=== PATIENT | female | born 1975 | race Caucasian/White ===

== ENCOUNTER 2019-10-19 16:30 | Emergency (ER) | payer OTHER, SELFPAY ==
[2019-10-19 16:44] VITALS: BP 133/60; PULSE 92; RESP 20; TEMP 37.4; O2SAT 98
--- NOTE | 2019-10-19 17:03 | ED.URI ---
HPI - URI/Sore Throat General Chief Complaint: Upper Respiratory Infection Stated Complaint: ear ache and head ache Time Seen by Provider: 10/19/19 17:04 Source: patient and family History of Present Illness HPI Narrative: Patient complains with right-sided facial tenderness and bilateral ear pain and discomfort. Patient states she is taken Tylenol Cold and sinus and using saline nasal spray with minimal relief in her symptoms. Patient states her symptoms have been going on for over 2 weeks. MD elicited complaint: nasal congestion Related Data Home Medications Medication Instructions Recorded Confirmed duloxetine [Cymbalta] 120 mg PO DAILY 10/19/19 10/19/19 losartan-hydrochlorothiazide 1 tablet PO DAILY 10/19/19 10/19/19 trazodone 200 mg PO HS 10/19/19 10/19/19 Allergies Allergy/AdvReac Type Severity Reaction Status Date / Time No Known Allergies Allergy Unverified 06/07/18 12:44 Review of Systems Review of Systems: Narrative: CONSTITUTIONAL: Denies fever, chills, or sweats. EYES: Denies visual changes, redness, or discharge. ENT: Denies rhinorrhea, congestion, sore throat, or otalgia. CARDIOVASCULAR: Denies chest pain, palpitations, or edema. RESPIRATORY: Denies cough or dyspnea. GASTROINTESTINAL: Denies abdominal pain, nausea, vomiting, or diarrhea. GENITOURINARY: Denies dysuria or hematuria. SKIN: Denies rash or itching. MUSCULOSKELETAL: Denies back pain, joint pain, or myalgia. NEUROLOGIC: Denies headache, numbness, or weakness. PSYCHIATRIC: Denies anxiety or depression. All systems reviewed & are unremarkable except as noted in HPI and below PMFSH Comments At time of signature, agree with nursing past medical, surgical, social and family history. There is no relevant family history pertinent to the presenting complaint Exam Narrative: Exam Narrative: The patient is a well-developed, well-nourished in no acute distress. SKIN: Skin is warm and dry without erythema, swelling or exudate. There is good turgor. No tenting. HEAD: Atraumatic. Normocephalic. No temporal or scalp tenderness. EYES: Moist and bright. Sclera and conjunctivae normal. No discharge. PERRLA. Extraocular motions intact. Gross visual acuity intact. EARS: Pinna is normal shape and contour. Clear external auditory canals. TM pearly vergara with good cone of light, no erythema or suppuration. Bilateral cerumen noted no gross hearing deficit. NOSE: pink, moist mucosa with good air movement. Clear rhinorrhea without nasal flaring. Septum midline. Moderate maxillary sinus pressure Mouth: moist mucous membranes. THROAT; mild erythema noted to posterior oropharynx with moderate postnasal drainage. Without exudate or ulceration.. Uvula midline. Normal movement of soft palate. NECK: Supple and nontender with full range of motion without discomfort. No meningeal signs. LUNGS: Equal and bilateral breath sounds without wheezes, rales or rhonchi. CHEST: The chest wall is without retractions or use of accessory muscles. HEART: Has a regular rate and rhythm without murmur, gallops, click or rub. ABDOMEN: Soft, nontender with positive active bowel sounds. No rebound tenderness. EXTREMITIES: Without cyanosis, clubbing or edema. Equal 2+ distal pulses and 2 second capillary refill noted. NEUROLOGIC: alert, active, . The patient moves all extremities with normal muscle strength. Normal muscle tone is noted. Normal coordination is noted. NO focal neurological findings noted. Course Vital Signs Vital signs: Vital Signs Temperature 37.4 C 10/19/19 16:44 Pulse Rate 92 10/19/19 16:44 Respiratory Rate 20 10/19/19 16:44 Blood Pressure 133/60 10/19/19 16:44 Pulse Oximetry 98 10/19/19 16:44 Temperature 37.4 C 10/19/19 16:44 Pulse Rate 92 10/19/19 16:44 Respiratory Rate 20 10/19/19 16:44 Blood Pressure 133/60 10/19/19 16:44 Pulse Oximetry 98 10/19/19 16:44 Critical Care Time Critical Care Time Critical Care Time: No Discharge Ken
== END 2019-10-19 17:10 | disposition home or self-care (01) ==
PROVIDERS: Emergency Provider Nurse Practitioner Family
DX: J01.10 Acute frontal sinusitis, unspecified (principal); J06.9 Acute upper respiratory infection, unspecified; I10 Essential (primary) hypertension; F32.9 Major depressive disorder, single episode, unspecified
CPT/HCPCS: 99213; G0463

== ENCOUNTER 2022-08-04 12:27 | Emergency (ER) | payer OTHER, SELFPAY ==
[2022-08-04 13:51] VITALS: BP 126/87; PULSE 86; RESP 18; TEMP 36.7; O2SAT 98
--- NOTE | 2022-08-04 16:00 | ED.EAR ---
HPI - Ear Problem General Chief complaint: Ear Stated complaint: Ear Pain/Sore Throat Time Seen by Provider: 08/04/22 16:00 Source: patient, RN notes reviewed and old records reviewed Mode of arrival: ambulatory Limitations: no limitations History of Present Illness HPI Narrative: 47-year-old female presents to [facility] care with complaints of headache, sore throat, bilateral ear pain, cough, sinus congestion and drainage for the past week. Patient reports that she has been taking Sudafed and also Flonase, Tylenol and Ibuprofen for her symptoms. Patient rates her ear pain as 7/10, reports that they are burning, sharp and throbbing. 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 MD Complaint: ear pain and other (headache, sore throat, cough, sinus congestion and drainage) Location: bilateral Severity: severe Discharge from ear: Reports no Treatment prior to arrival: oral analgesic and other (Sudafed and Flonase) Related Data Home Medications Medication Instructions Recorded Confirmed trazodone 100 mg tablet 200 mg PO HS 10/19/19 08/04/22 Ibuprofen BYMOUTH 11/10/21 11/10/21 buspirone 10 mg tablet 10 mg PO QHS 11/10/21 08/04/22 duloxetine 60 mg capsule,delayed 60 mg PO QHS 11/10/21 08/04/22 release (Cymbalta) duloxetine 30 mg capsule,delayed 30 mg PO HS 08/04/22 08/04/22 release Allergies Allergy/AdvReac Type Severity Reaction Status Date / Time No Known Allergies Allergy Verified 08/04/22 13:46 Review of Systems Review of Systems: CONSTITUTIONAL: No known fever, chills, or sweats. EYES: Denies visual changes, redness, or discharge. ENT: Reports rhinorrhea, congestion,positive for sore throat, bilateral otalgia. CARDIOVASCULAR: Denies chest pain, palpitations, or edema. RESPIRATORY: Denies cough or dyspnea. GASTROINTESTINAL: Denies abdominal pain, nausea, vomiting, or diarrhea. GENITOURINARY: Denies dysuria or hematuria. SKIN: Denies rash or itching. MUSCULOSKELETAL: Denies back pain, joint pain, or myalgia. NEUROLOGIC: Reports headache,no numbness, or weakness. PSYCHIATRIC: Denies anxiety or depression. All systems reviewed & are unremarkable except as noted in HPI and below PMFSH Past Medical History Medical History Anemia Anxiety Arthritis Bloating Chicken pox Chronic GERD Depression History of miscarriage Hypertension Missed x1 Vaginal delivery x2 Surgical History Surgical History History of cholecystectomy 2018 History of foot surgery Family History Family History Father Hypertension Anxiety Depression Sibling Hypertension Son Anxiety Depression Social History Social History Social History: Patient drinks caffeine daily. 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 Gender identity (if verbalized by the patient): Female Sexual Orientation (if Verbalized by the Patient): Straight or Heterosexual Comments At time of signature, agree with nursing past medical, surgical, social and family history. There is no relevant family history pertinent to the presenting complaint Exam Narrative: GENERAL: Well-appearing, well-nourished, obese, and in no acute distress. HEAD: Normocephalic, atraumatic. EYES: PERRLA and EOMI. ENT: Nares clear,clear rhinorrhea no epistaxis. Mucous membranes moist.TM's dull with fluid noted no redness of TM or ear canals, throat pink with no lesions or exudates,post nasal drainage NECK: Supple. no lymphadenopathy CHEST: Clear to auscultation. No respiratory distress. SAO2 98%
== END 2022-08-04 16:30 | disposition home or self-care (01) ==
PROVIDERS: Emergency Provider Registered Nurse; PCP Emergency Medicine
DX: J06.9 Acute upper respiratory infection, unspecified (principal); R05.9 Cough, unspecified; H92.03 Otalgia, bilateral; M19.90 Unspecified osteoarthritis, unspecified site; K21.9 Gastro-esophageal reflux disease without esophagitis; I10 Essential (primary) hypertension; F41.9 Anxiety disorder, unspecified; F32.A Depression, unspecified
CPT/HCPCS: 87081; 87880; 99213; G0463

== ENCOUNTER 2022-09-22 15:25 | Outpatient (CLI) | payer OTHER, SELFPAY ==
--- NOTE | ~2022-09-22 | CT_ITS ---
EXAMINATION: CT abdomen pelvis w con INDICATION: Right lower quadrant pain, anterior abdominal mass TECHNIQUE: Computed tomographic images of the abdomen and pelvis were obtained after the administrati on of 100 cc of Omnipaque 350 intravenous contrast. The dose-length product (DLP) was 1249.79 mGy-cm. Automated exposure control and iterative reconstruction technique were employed. COMPARISON: None available FINDINGS: Minimal dependent atelectasis is present in the lung bases. The heart size is normal. The g allbladder is surgically absent. The liver, spleen, pancreas, and adrenal glands are normal. There is any millimeters cyst of the right kidney. The left kidney is unremarkable. No pathologically enlarge d abdominal or pelvic lymph nodes are identified. There is no free intraperitoneal gas or evidence of bowel obstruction. The appendix is normal. There is mild anterior wedging of multiple lower thoracic vertebral bodies. There is mild lower lumbar spondylosis. A tiny fat-containing umbilical hernia is noted. IMPRESSION: 1. No CT correlate for the patient's symptoms. Reviewed, dictated and finalized at location L. ER
[2022-09-22 15:56] LABS: Estimated Glomerular Filt Rate > 60
== END 2022-09-22 15:26 ==
LOC: MICIMG 15:27
PROVIDERS: PCP Obstetrics & Gynecology; Visit Provider Obstetrics & Gynecology
DX: R19.09 Other intra-abdominal and pelvic swelling, mass and lump (principal)
CPT/HCPCS: 74177; Q9967

== ENCOUNTER 2023-02-18 10:56 | Outpatient (CLI) | payer OTHER, SELFPAY ==
--- NOTE | 2023-02-18 11:06 | ECG_ITS ---
Measurements Intervals [place] Rate: 76 P: 17 UT: 125 QRS: 55 QRSD: 97 T: 20 QT: 364 QTc: 410 Interpretive Statements SINUS RHYTHM WITHIN NORMAL LIMITS NO PREVIOUS ECG AVAILABLE FOR COMPARISON Electronically Signed On 02-18-2023 12:54:43 CDT by Tico Barr M.D.
[2023-02-18 12:36] LABS: Anion Gap 6 mmol/L (8-16); Blood Urea Nitrogen 13 mg/dL (7-17); Calcium 8.5 mg/dL (8.4-10.2); Carbon Dioxide 29 mmol/L (22-30); Chloride 104 mmol/L (98-107); Estimated Glomerular Filt Rate > 60; Glucose 155 mg/dL (65-110); Potassium 3.9 mmol/L (3.4-5.0); Sodium 139 mmol/L (137-145)
== END 2023-02-18 10:57 | disposition home or self-care (01) ==
LOC: ANHSURGERY 11:02
PROVIDERS: PCP Emergency Medicine; Visit Provider Surgery
DX: K42.9 Umbilical hernia without obstruction or gangrene (principal); I10 Essential (primary) hypertension; Z01.818 Encounter for other preprocedural examination
CPT/HCPCS: 36415; 80048; 86850; 86900; 86901; 93005

== ENCOUNTER 2023-02-23 07:00 | Day surgery (SDC) | payer OTHER, SELFPAY ==
[2023-02-17 12:50] VITALS: BMI 45.8
--- NOTE | 2023-02-17 13:11 | PC.NURSE ---
Report to the Outpatient Waiting Room, entrance under the green pavilion located off [facility], at time _0600__ on date 02/23/23_. Planned Procedure Time: _0730_. Time changes happen often and if your time is changed the preop area will call you the afternoon before. - You and your visitor will be asked to self-screen and do not enter if you have any COVID symptoms. - A mask is optional within the hospital at this time. Patients may have clear liquids (water, carbonated beverages, clear teas, apple juice) until 3 hours prior to surgery with a maximum of 20 ounces. - No food from midnight until time of surgery. Take the following medications with a SIP of water the morning of surgery: __NONE DO NOT STOP ANY OF YOUR OTHER PRESCRIPTION MEDICATIONS PRIOR TO SURGERY ?EXCEPT THE FOLLOWING Medications to discontinue per physician IBUPROFEN 02/20/23 SWITCH TO TYLENOL PRN Date to take last dose Please no make-up, nail serbian, hairspray, perfume, deodorant, or body powder the day of surgery. No jewelry (including any body piercings) or valuables the day of surgery, leave them at home. Please take a shower or bath the night before, or the morning of, surgery with an antibacterial soap. Wear comfortable, loose fitting clothing. - Jewelry must be removed prior to entering the operating room. Rings and piercings that are not removed may be cut off. - The hospital will not accept responsibility for valuables. - Please leave all valuables, including medications, at home the day of surgery. If you are going home after surgery, a licensed test driver must drive you home. - NO public transportation without another adult if you receive anesthesia. - We recommend that an adult stay with you for 24 hours following discharge. - We also recommend that you do not drive, make important decision, drink alcoholic beverages, or take any drugs that were not prescribed by your health care provider for at least 24 hours after your discharge time. Follow any additional instructions given to you from your surgeon. If you or anyone in your household have experienced Covid symptoms in the past week, please notify your surgeon or the nurse liaison at the phone number below for possible testing. Telephone instructions given to _KELVIN__and asked if any additional questions and then verbalized understanding. Patient advised to call surgeon office or pre surgery nurse liaison [phone] if any additional questions.
--- NOTE | 2023-02-23 21:14 | OP_ITS ---
DATE OF PROCEDURE: 02/23/2023 PREOPERATIVE DIAGNOSIS: Umbilical hernia. POSTOPERATIVE DIAGNOSIS: 1 cm reducible umbilical hernia. PROCEDURE: Laparoscopic 1 cm umbilical hernia repair with mesh, Da Aleksander assisted. ANESTHESIA: General endotracheal and 0.5% bupivacaine with epinephrine local. ESTIMATED BLOOD LOSS: 5 mL. INDICATIONS: This is a 47-year-old woman, who presented with periumbilical pain that started about 6 months ago. She had a recent CT that showed evidence of a small umbilical hernia with no other intraabdominal abnormalities. The patient was found to have a small reducible umbilical hernia on exam. Discussions were made with the patient about treatment options and decision was made to proceed with robotic-assisted laparoscopic umbilical hernia repair with mesh. OPERATIVE FINDINGS: Laparoscopic umbilical hernia repair was performed. The patient was found to have a 1 cm reducible umbilical hernia containing preperitoneal fat. A robotic transabdominal preperitoneal approach was utilized for repair. A wide enough preperitoneal pocket was created and then the hernia defect was closed using 0 Stratafix running absorbable suture. A 10 cm x 15 cm Bard soft mesh was then placed within the preperitoneal pocket and secured to the abdominal wall using 3-0 Vicryl simple interrupted sutures. No specimens were obtained for pathology. DESCRIPTION OF PROCEDURE: Procedure as well as risks, benefits, and alternatives were discussed with the patient. Written consent was obtained and placed in chart prior to procedure. The patient was brought back to surgical suite. She was placed supine on operating table. Time-out was done to confirm patient and procedure. She was then intubated by the anesthesia department. Her abdomen was prepped and draped in sterile fashion using chlorhexidine prep. A bump was placed under her left hip and the bed was slightly flexed to expose the space between her costal margin and iliac crest. 0.5% bupivacaine with epinephrine was infiltrated locally around each area for port placement. An 8 mm incision was then made in the left upper quadrant and a 5 mm Optiview trocar was advanced through the abdominal layers under direct visualization. Once inside the abdominal cavity, carbon dioxide insufflation was used to create a pneumoperitoneum. The camera was inserted and the abdomen was inspected. No immediate abnormalities were identified. The patient was then placed in slight Trendelenburg position. An 8 mm incision was made in the left lower quadrant and an 8 mm trocar was advanced under direct visualization. Another 8 mm incision was made in the left lateral abdomen and an 8 mm trocar was inserted under direct visualization. The 5 mm port was then removed and this was replaced with another 8 mm robotic trocar. The robotic arms were then brought up to the patient's bedside and secured to the ports. The camera and instrument were then inserted. I then moved over to the robotic console and took control of the camera and instruments. A careful inspection was made around the abdominal cavity. I then identified the umbilical hernia, which appeared small and only containing preperitoneal fat. I then began a preperitoneal plane along the left lateral abdomen using scissors with electrocautery. The preperitoneal space was entered and this was dissected medially towards the hernia defect. I then also dissected far enough laterally to allow for mesh placement. The hernia sac and herniated preperitoneal fat was reduced. Once a wide enough preperitoneal pocket was created, I then closed the hernia defect using 0 Stratafix running absorbable suture. This was closed in a vertical fashion. I then chose a 15 cm x 10 cm Bard soft mesh and this was placed within the abdominal cavity and then placed within the preperitoneal pocket. The mesh was la
--- NOTE | 2023-02-24 12:40 | SUR.PREOP ---
Paper documentation exists on this patient due to [employer] downtime on 02/23/23
== END 2023-02-23 10:46 | disposition home or self-care (01) ==
PROVIDERS: PCP Emergency Medicine; Visit Provider Surgery
PROC: (CPT 49591; principal; 2023-02-23 07:30)
DX: K42.9 Umbilical hernia without obstruction or gangrene (principal); I10 Essential (primary) hypertension; G47.33 Obstructive sleep apnea (adult) (pediatric); F32.A Depression, unspecified
CPT/HCPCS: 49591; S2900; 36415; 80048; 86850; 86900; 86901; 93005; C1781; J0690; J1100; J2405; J2704; J2710

== ENCOUNTER 2023-06-21 10:41 | Emergency (ER) | payer OTHER, SELFPAY ==
[2023-06-21 10:54] VITALS: BP 135/78; PULSE 78; RESP 18; TEMP 36.8; O2SAT 98
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
[2023-06-21] MEDS: CYCLOBENZAPRINE HCL 5 MG TABLET 10 MG PO (12:34)
[2023-06-21] MEDS: IBUPROFEN 400 MG TABLET 800 MG PO (12:35)
[2023-06-21] MEDS: ACETAMINOPHEN 500 MG TABLET 1000 MG PO (12:35)
== END 2023-06-21 12:39 | disposition home or self-care (01) ==
PROVIDERS: Emergency Provider Emergency Medicine; PCP Emergency Medicine
DX: S16.1XXA Strain of muscle, fascia and tendon at neck level, initial encounter (principal); D64.9 Anemia, unspecified; F41.9 Anxiety disorder, unspecified; M19.90 Unspecified osteoarthritis, unspecified site; K21.9 Gastro-esophageal reflux disease without esophagitis; F32.A Depression, unspecified; I10 Essential (primary) hypertension; V43.53XA Car driver injured in collision with pick-up truck in traffic accident, initial encounter
CPT/HCPCS: 99283; A9270

== ENCOUNTER 2023-09-21 15:21 | Emergency (ER) | payer OTHER, SELFPAY ==
--- NOTE | 2023-09-21 15:25 | ED.EAR ---
HPI - Ear Problem General Chief complaint: Ear Stated complaint: ears Source: patient, RN notes reviewed and old records reviewed Mode of arrival: ambulatory Limitations: no limitations History of Present Illness HPI Narrative: 48 year female presents to [facility] with complaint of left ear pain for 3 days. Patient states had some congestion, this states is chronic. Patient states has ENT that she sees regularly and is on Flonase and another nasal spray. MD Complaint: ear pain Location: left ear Duration: constant Severity: moderate Relieving factors: nothing Exacerbating factors: nothing Related Data Home Medications Medication Instructions Recorded Confirmed trazodone 100 mg tablet 200 mg PO BID 10/19/19 09/21/23 duloxetine 60 mg capsule,delayed 60 mg PO BID 11/01/22 09/21/23 release (Cymbalta) brexpiprazole 2 mg tablet (Rexulti) 2 mg PO DAILY 09/19/23 09/21/23 azelastine 137 mcg-fluticasone 50 2 spray intranasal DAILY 09/21/23 09/21/23 mcg/spray nasal spray hydrochlorothiazide 12.5 mg capsule 12.5 mg PO DAILY 09/21/23 09/21/23 linaclotide 72 mcg capsule 72 mcg PO DAILY 09/21/23 09/21/23 (Linzess) norethindrone (contraceptive) 0.35 0.35 mg PO DAILY 09/21/23 09/21/23 mg tablet Allergies Allergy/AdvReac Type Severity Reaction Status Date / Time No Known Allergies Allergy Verified 09/21/23 15:24 Review of Systems Constitutional: Constitutional: Reports no additional constitutional complaints, Denies body ache(s), Denies chills, Denies fatigue, Denies fever(s) and Denies headache(s) Eyes: Eyes: Reports no additional eye complaints and Denies blurry vision ENT: Reports system reviewed and no additional complaints, except as documented, Denies vertigo, Denies dizziness, Denies ear discharge, Reports otalgia, Denies facial pain, Denies headache(s), Denies nasal congestion, Denies nasal discharge, Denies sinus pain, Denies sinus pressure and Denies sore throat Cardiovascular: Cardiovascular: Reports no additional cardiovascular complaints, Denies chest pain, Denies chest pain at rest, Denies rapid heart rate and Denies dyspnea Respiratory: Respiratory: Reports no additional respiratory complaints, Denies chest congestion, Denies cough, Denies pain on inspiration, Denies pain with cough and Denies dyspnea Gastrointestinal: Gastrointestinal: Denies abdominal pain, Denies diarrhea, Denies nausea and Denies vomiting Integumentary/Breasts: Skin/Breast: Denies rash Neurologic: Reports system reviewed and no additional complaints, except as documented, Denies vertigo, Denies dizziness and Denies headache(s) Endocrine: Endocrine: Denies fatigue PMFSH Past Medical History Medical History Anemia Anxiety Arthritis Bloating Chicken pox Chronic GERD Depression History of miscarriage Hypertension Missed x1 Vaginal delivery x2 Surgical History Surgical History H/O umbilical hernia repair 02/23/23 Laparoscopic 1 cm umbilical hernia repair with mesh, Da Aleksander assisted. History of cholecystectomy 2018 History of foot surgery Family History Family History Father Hypertension Anxiety Depression Sibling Hypertension Son Anxiety Depression Mother Atrial fibrillation Social History Social History Social History: Patient drinks caffeine daily. Smoking status: Never smoker Second hand tobacco smoke exposure: No Alcohol intake: never Substance use: never Substance use type: does not use Lack of Transportation: No Lack of Food: Never True Current Housing: I Have Housing Concerned About Future Housing: No Difficulty Paying Gas/Electric Bills: No Difficulty Paying for Meds: No Currently Unemployed: No Education: High School Diploma/GED
[2023-09-21 15:26] VITALS: BP 130/84; PULSE 78; RESP 16; TEMP 36.6; O2SAT 98
[2023-09-21 15:32] VITALS: BP 130/84; PULSE 78; RESP 16; TEMP 36.6; O2SAT 98
== END 2023-09-21 15:38 | disposition home or self-care (01) ==
PROVIDERS: Emergency Provider Registered Nurse; PCP Emergency Medicine
DX: H66.92 Otitis media, unspecified, left ear (principal); I10 Essential (primary) hypertension; Z79.899 Other long term (current) drug therapy
CPT/HCPCS: 99213; G0463

== ENCOUNTER 2024-08-01 16:26 | Emergency (ER) | payer OTHER, SELFPAY ==
--- NOTE | ~2024-08-01 | XR_ITS ---
EXAMINATION: XR hand RT min 3V DATE: 08/01/2024 20:18 INDICATION: Right hand foreign body. TECHNIQUE: 3 views of right hand were obtained. COMPARISON: None. FINDINGS: Alignment is normal. No acute fracture. There is an old healed fracture of diaphysis of fif th metacarpal. 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 IMPRESSION: 1. No radiopaque foreign body. Reviewed, dictated and finalized at location A. JACK NOZZLEMAN
[2024-08-01 16:28] VITALS: BP 170/79; PULSE 85; RESP 16; TEMP 36.3; O2SAT 98
--- NOTE | 2024-08-01 20:05 | ED_ITS ---
HPI - Animal Bite General Chief Complaint: Animal Bite Stated Complaint: dog bite Time Seen by Provider: 08/01/24 19:42 History of Present Illness HPI narrative: patient is a 49-year-old female who presents to the emergency department this evening complaining of a dog bite to the right hand. Patient has multiple small puncture wound to her right hand. She states that 2 of her dogs were in a fight and she was trying to break them up and she got bit. Patient admits that her tetanus is not up-to-date. Denies any additional symptoms or concerns at this time. Related Data Home Medications Medication Instructions Recorded Confirmed trazodone 100 mg tablet 200 mg PO BID 10/19/19 07/03/24 duloxetine 60 mg capsule,delayed 60 mg PO BID 11/01/22 07/03/24 release (Cymbalta) fluticasone propionate 50 2 spray intranasal DAILY 09/21/23 07/03/24 mcg/actuation nasal spray,suspension norethindrone (contraceptive) 0.35 0.35 mg PO DAILY 09/21/23 07/03/24 mg tablet Allergies Allergy/AdvReac Type Severity Reaction Status Date / Time No Known Allergies Allergy Verified 07/03/24 15:52 Review of Systems Review of Systems: All systems are reviewed and are negative unless stated otherwise in the HPI. PMFSH Past Medical History Medical History Anemia Anxiety Arthritis Bloating Chicken pox Chronic GERD Depression Dizziness Earache Encounter for contraceptive surveillance Encounter for examination following surgery Encounter for other specified surgical aftercare History of miscarriage Hypertension Indigestion Missed x1 Nausea and vomiting Palpitation Sinusitis chronic, frontal Stomach problems Umbilical hernia without mention of obstruction or gangrene Vaginal delivery x2 Surgical History Surgical History H/O umbilical hernia repair 02/23/23 Laparoscopic 1 cm umbilical hernia repair with mesh, Da Aleksander assisted. History of cholecystectomy 2018 History of foot surgery Family History Family History Father Hypertension Anxiety Depression Sibling Hypertension Son Anxiety Depression Mother Atrial fibrillation Social History Social History Social History: Patient drinks caffeine daily. 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 Gender identity (if verbalized by the patient): Female Sexual Orientation (if Verbalized by the Patient): Straight or Heterosexual Spiritual care concerns: No Exam Narrative: General: Alert, awake, afebrile, in no acute distress. HEENT: PERRL, no rhinorrhea, no post nasal drip, oropharynx clear. Neck: Trachea midline, no JVD, no lymphadenopathy. Cardiovascular: Regular rate and rhythm, no murmurs, rubs or gallops, no peripheral edema. Respiratory: Clear to auscultation bilaterally, no tachypnea, no wheezing, no rhonchi, no rubs, no respiratory distress. Abdomen: Soft, nontender, nondistended, no rebound, no guarding, no peritoneal signs. Musculoskeletal: No joint swelling or deformity, normal muscle tone. Skin: Multiple small punctate wounds to the right hand largest measuring 4 mm, no active bleeding, patient is neurovascularly intact. Psychiatric: Alert and oriented, normal behavior and judgment for situation. Neurological: Alert and oriented to person, place, and time. Follows all commands. No focal deficits, speech is clear and fluent. Course Vital Signs Vital signs: Vital Signs Temperature 97.3 F L 08/01/24 16:28 Pulse Rate 85 08/01/24 16:28 Respiratory Rate 16 08/01/24 16:28 Blood Pressure 170/79 H 08/01/24 16:28 Pulse Oximetry 98 08/01/24 16:28 Oxygen Delivery Room Air 08/01/24 16:28 Temperature 97.3 F L 08/01/24 16:28 Pulse Rate 85 08/01/24 16:28 Respiratory Rate 16 08/01/24 16:28 Blood Pressure 170/79 H 08/01/24 16:28 Pulse Oximetry 98 08/01/24 16:28 Oxygen Delivery Room Air 08/01/24 16:28 MDM - Animal Bite MDM Narrative Medical decision making narrative: The patient was evaluated by myself in the emergency department. History is obtained from patient who is an independent historian and physical exam was performed. External medical records were reviewed at this time. Patient was administered her 1st dose of Augmentin in the emergency department and an oral [place] 5-325 mg. Tetanus updated. Imaging studies obtained included right hand x-ray which was independently interpreted by me revealing no acute process, no foreign body identified, which is pending final radiology interpretation. Differential diagnosis considerations include lacerations, abrasions, foreign body. Comorbidities impacting this visit include none. I have evaluated and discussed social determinants of health with the patient that could potentially impact subsequent diagnosis and treatment plans. On repeat assessment of the patient, reevaluation revealed that the patient is doing well and is in no acute distress. Patient symptoms have improved since she arrived to our emergency department. Repeat vital signs were all reviewed and noted to be stable. Differential diagnosis and treatment plan were discussed with the patient at bedside. Patient agrees with discussion and after shared medical decision making agrees with discharge. All questions were answered to the patient's satisfaction. Patient will follow up with her PCP in 3-5 days. Patient was provided with strict return precautions and instructed to return to the emergency department if any new or worsening symptoms develop. The patient was discharged in stable condition. Discharge Plan Discharge Clinical Impression: Dog bite Patient Disposition: Home, Self-Care Condition: Improved Instructions: Antibiotic Form, Animal Bite (ED) Additional Instructions: Please take the prescribed antibiotic as instructed. Return to the emergency department if any new or worsening symptoms develop. Follow-up with your family doctor within the next 3-5 days. Prescriptions: New amoxicillin-pot clavulanate 875-125 mg tablet 1 tablet PO Q12H 7 Days Qty: 14 0RF No Action norethindrone (contraceptive) 0.35 mg tablet 0.35 mg PO DAILY fluticasone propionate 50 mcg/actuation spray,suspension 2 spray INTRANASAL DAILY trazodone 100 mg Tablet 200 mg PO BID duloxetine [Cymbalta] 60 mg capsule,delayed release(DR/EC) 60 mg PO BID Linzess 72 mcg capsule 72 mcg PO DAILY Qty: 90 2RF omeprazole 40 mg capsule,delayed release(DR/EC) 40 mg PO DAILY Qty: 90 2RF azelastine-fluticasone 137-50 mcg/spray spray,non-aerosol 2 spray INTRANASAL DAILY Qty: 23 2RF losartan 50 mg tablet See Rx Instructions .ROUTE .COMPLEX Qty: 90 2RF Dose Instruction: TAKE ONE TABLET BY MOUTH EVERY DAY Rx Instructions: TAKE ONE TABLET BY MOUTH EVERY DAY hydrochlorothiazide 12.5 mg capsule See Rx Instructions .ROUTE .COMPLEX Qty: 90 2RF Dose Instruction: TAKE 1 CAPSULE BY MOUTH EVERY DAY Rx Instructions: TAKE 1 CAPSULE BY MOUTH EVERY DAY Follow-up/Referrals: Tico Patel MD [Primary Care Provider] - 1 Week Time of Disposition: 20:02
[2024-08-01] MEDS: TETANUS,DIPHTHERIA,AC PERTUSSIS ADULT (0.5 ML) BOOSTRIX IM (20:12)
[2024-08-01] MEDS: AMOXICILLIN/CLAVULANATE K 875-125 MG TAB 1 TABLET PO (20:12)
[2024-08-01] MEDS: HYDROcodone/acetaminophen (*CRX) 5-325 MG TABLET 1 TAB PO (20:30)
== END 2024-08-01 21:00 | disposition home or self-care (01) ==
LOC: ANHED 20:51
PROVIDERS: Emergency Provider Emergency Medicine; PCP Emergency Medicine
DX: S61.451A Open bite of right hand, initial encounter (principal); D64.9 Anemia, unspecified; F41.9 Anxiety disorder, unspecified; M19.90 Unspecified osteoarthritis, unspecified site; K21.9 Gastro-esophageal reflux disease without esophagitis; F32.A Depression, unspecified; I10 Essential (primary) hypertension; W54.0XXA Bitten by dog, initial encounter; Z23 Encounter for immunization
CPT/HCPCS: 73130; 90471; 90715; 99283; A9270

== ENCOUNTER 2025-09-07 17:58 | Emergency (ER) | payer OTHER, SELFPAY ==
--- NOTE | ~2025-09-07 | XR_ITS ---
EXAMINATION: Right rib series with PA and lateral chest: DATE: 09/07/2025. INDICATION: Pain, right lower rib cage. No mention of trauma. TECHNIQUE: 2 views of the chest, right rib series. COMPARISON: None. FINDINGS: Heart size is normal. Lungs are clear of acute processes. No acute findings of right ribs. Chest wall shows no acute findings. IMPRESSION: 1. No acute cardiopulmonary findings. 2. No acute findings of right-sided ribs. Reviewed, dictated and finalized at location [facility]
--- OUTSIDE RECORDS SUMMARY | 2025-09-07 18:00 | XMS_ITS | Clinical Summary ---
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
--- OUTSIDE RECORDS SUMMARY | 2025-09-07 18:00 | XMS_ITS | Clinical Summary ---
Author Organization [facility] Agent Partner & [facility] lin Address [address] [place] [address] Care Team Providers Care Apprentice Pattern Maker Name Role Phone Unavailable Primary Care Provider Unavailabl e Social History Tobacco Use Types Packs/Day Years Used Date Smoking Tobacco: Never Assessed Comments Unknown Sex and Gender Information Value Date Recorded Sex Assigned at Not on file Legal Sex Female 3:23 PM EST Gender Identity Not on file Sexual Orientation Not on file Plan of Treatment Not on file Medical Devices Not on file
--- OUTSIDE RECORDS SUMMARY | 2025-09-07 18:00 | XMS_ITS | Encounter Summary ---
Author Organization [facility] Address 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 Gender Identity Not on file Sexual Orientation Not on file documented as of this encounter Plan of Treatment Not on file documented as of this encounter Procedures Procedure Name Priority Date/Time Associated Diagnosis Comments POC GLUCOSE Routine 10/16/2007 10:53 PM SOFTWARE CONTROLS ENGINEER CBC WITH DIFFERENTIAL Routine 10/16/2007 10:48 PM SOFTWARE CONTROLS ENGINEER CBC WITH DIFFERENTIAL Routine 10/16/2007 10:48 PM SOFTWARE CONTROLS ENGINEER COMPREHENSIVE METABOLIC PANEL Routine 10/16/2007 10:48 PM SOFTWARE CONTROLS ENGINEER documented in this encounter Results * (ABNORMAL) POC GLUCOSE (10/16/2007 10:53 PM SOFTWARE CONTROLS ENGINEER) GLUCOSE POC 126(H) 65 - 99 mg/dL INTERFACE SYSTEM 10/16/2007 10:5 3 PM SOFTWARE CONTROLS ENGINEER us Authorized P Er POINT OF CARE TESTING Final Resu lt INTERFACE SYSTEM Refer to clinic/hospital department * CBC WITH DIFFERENTIAL (10/16/2007 10:48 PM SOFTWARE CONTROLS ENGINEER) NEUTROPHILS 46 45 - 70 % INTERFAC E SYSTEM LYMPHOCYTES 41 16 - 45 % INTERFAC E SYSTEM MONOCYTES 13 3 - 13 % INTERFACE SYSTEM EOSINOPHILS 0 0 - 7 % INTERFAC E SYSTEM BASOPHILS 0 0 - 2 % INTERFACE SYSTEM NEUTROPHIL ABSOLUTE 3.77 1.90 - 7.00 K/uL INTERFACE SYSTEM LYMPHOCYTE ABSOLUTE 3.32 0.70 - 4.50 K/uL INTERFACE SYSTEM MONOCYTE ABSOLUTE 1.02 0.10 - 1.30 K/uL INTERFACE SYSTEM EOSINOPHIL ABSOLUTE 0.01 0.00 - 0.70 K/uL INTERFACE SYSTEM BASOPHILS ABSOLUTE 0.02 0.00 - 0.20 K/uL INTERFACE SYSTEM 10/16/2007 10:4 8 PM SOFTWARE CONTROLS ENGINEER Alexis Hutchison Jr., MD HEMATOLOGY ORDERABLES [place] Result Performing Organization Address [facility] Phone Number INTERFACE SYSTEM Refer to clinic/hospital department * (ABNORMAL) CBC WITH DIFFERENTIAL (10/16/2007 10:48 PM SOFTWARE CONTROLS ENGINEER) WBC 8.1 4.0 - 9.8 K/uL INTERFACE SYSTEM RBC 4.66 3.90 - 4.90 M/uL INTERFACE SYSTEM HEMOGLOBIN 12.0 11.8 - 14.8 g/dL INTERFACE SYSTEM HEMATOCRIT 37.0 35.5 - 44.0 % INTERFACE SYSTEM MCV 79.4(L) 82.0 - 99.0 fL INTERFACE SYSTEM MCH 25.8(L) 27.2 - 32.6 pg INTERFACE SYSTEM MCHC 32.4 31.5 - 35.5 % INTERFACE SYSTEM RDW 14.8(H) 11.5 - 14.5 % INTERFACE SYSTEM RDW-STDEV 42.5 37.1 - 48.7 fL INTERFACE SYSTEM PLATELETS 332 140 - 350 K/uL INTERFACE SYSTEM MPV 10.7 9.3 - 12.4 fL INTERFACE SYSTEM 10/16/2007 10:4 8 PM SOFTWARE CONTROLS ENGINEER Alexis Hutchison Jr., MD HEMATOLOGY ORDERABLES [place] Result Performing Organization Address [facility]/ZIP Co de Phone Number INTERFACE SYSTEM Refer to clinic/hospital department * (ABNORMAL) COMPREHENSIVE METABOLIC PANEL (10/16/2007 10:48 PM SOFTWARE CONTROLS ENGINEER) GLUCOSE 128(H) 65 - 99 mg/dL INTERFACE SYSTEM CREATININE 0.59 0.51 - 0.95 mg/dL INTERFACE SYSTEM CALCIUM 8.6 8.4 - 10.2 mg/dL INTERFACE SYSTEM ALKALINE PHOSPHATASE 67 35 - 104 U/L INTERFACE SYSTEM AST 17 12 - 32 U/L INTERFACE SYSTEM ALT 14 0 - 31 U/L INTERFACE SYSTEM TOTAL PROTEIN 7.9 6.3 - 8.6 g/dL INTERFACE SYSTEM ALBUMIN 4.3 3.4 - 4.8 g/dL INTERFACE SYSTEM BILIRUBIN TOTAL 0.2 0.2 - 1.0 mg/dL INTERFACE SYSTEM BUN 11 6 - 20 mg/dL INTERFACE SYSTEM SODIUM 139 135 - 145 mmol/L INTERFACE SYSTEM POTASSIUM 3.3(L) 3.5 - 4.9 mmol/L INTERFACE SYSTEM CHLORIDE 105 96 - 108 mmol/L INTERFACE SYSTEM CO2 22 22 - 30 mmol/L INTERFACE SYSTEM GFR, >60 >=60 mL/min/1. 7 sq meter INTERFACE SYSTEM GFR >60 >=60 mL/min/1. 7 sq meter INTERFACE SYSTEM Comment: Estimated GFR rate interpretative information for both Americans and non- Americans is available on the [facility] Intranet at: [email or web address] Select: Lab Policies and Procedures Select: Reference Ranges - GFR 10/16/2007 10:4 8 PM SOFTWARE CONTROLS ENGINEER Alexis Hutchison Jr., MD CHEMISTRY ORDERABLES Final Result INTERFACE SYSTEM Refer to clinic/hospital department documented in this encounter Visit Diagnoses Not on filedocumented in this encounter
--- OUTSIDE RECORDS SUMMARY | 2025-09-07 18:01 | XMS_ITS | Clinical Summary ---
Author Organization [facility] Address [address] [place] [address] Care Team Providers Care Membership Sales Advisor Name Role Phone Sahara Cunningham Marian PEREZ-SUPERINTENDENT CONCRETE MIXING PLANT Primary Care Provider Source Comments [facility],non-owned Affiliates and Associated Physician Practices is amultiple site organization consisting of ambulatory clinics and hospital sitesin [place], [place], [place] and [place]. This disclosure is being madepursuant to the Care Everywhere program and may not contain all information available regarding this patient. Last updated 18.[facility] Allergies No known active allergies Medications * Be aware that medications may not be up to date on this document. Alwaysverify current medications with the patient. omeprazole (PRILOSEC) 10 MG capsule Active traZODone (DESYREL) 100 MG tablet 6 Active losartan - hydroCHLOROthiazide (HYZAAR) 50-12.5 MG tablet 6 Active DULoxetine (CYMBALTA) 60 MG capsule 8 Active ibuprofen (MOTRIN) 800 MG tablet Take 800 mg by mouth Active Immunizations Immunization Administration Dates Next Due INFLUENZA VACCINE, TRIV. 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 Gender Identity Not on file Sexual Orientation Not on file Last Filed Vital Signs Vital Sign Reading Time Taken Comments Blood Pressure 144/79 01/19/2019 9:45 AM CDT Pulse 75 01/19/2019 9:45 AM CDT Temperature 36.5 C (97.7 F) 01/19/2019 9:45 AM CDT Respiratory Rate 18 01/19/2019 9:45 AM CDT Oxygen Saturation 98% 01/19/2019 9:45 AM CDT Inhaled Oxygen Concentration - - Weight 145.2 kg (320 lb) 01/19/2019 9:45 AM CDT Height 177.8 cm (5' 10) 01/19/2019 9:45 AM CDT Body Mass Index 45.92 01/19/2019 9:45 AM CDT Plan of Treatment Health Maintenance Due Date Last Done Comments COLOGUARD (AGES 45-75) - COL ON CA SCREENING 1974 COLON MONITORING 1974 COLONOSCOPY - COLON CA SCREENING 1974 CT COLONOGRAPHY - COLON CA SCREENING 1974 Colorectal Cancer Screening 1974 FIT - COLON CA SCREENING 1974 FLEX SIG - COLON CA SCREENING 1974 LIPID TESTING 1974 MAMMOGRAM 1974 HIV SCREENING 1989 HEPATITIS C SCREENING 06/18/1992 DTAP/TDAP/TD VACCINES (1 - Tdap) 1993 HEPATITIS B VACCINE (1 of 3 - 19+ 3-dose series) 1993 SCREENING FOR DIABETES 01/19/2019 PNEUMOCOCCAL VACCINE 50+ (1 of 1 - PCV) 2024 ZOSTER VACCINE (1 of 2) 2024 DEPRESSION SCREENING 09/12/2024 COVID-19 VACCINE (1 - 2024-2 6 season) 2025 INFLUENZA VACCINE (#1) 2025 10/11/2008 HIB VACCINE Aged Out No longer eligi ble based on patient's age to complete this topic HPV VACCINE Aged Out No longer eligi ble based on patient's age to complete this topic MENINGOCOCCAL (Group B) VACC INE SHARED DECISION-MAKING Aged Out No longer eligibl e based on patient's age to complete this topic MENINGOCOCCAL GROUPS A/C/Y/W VACCINE Aged Out No longer eligible b ased on patient's age to complete this topic Insurance [employer] [facility] MEDICAID - OUT OF [facility] Care Teams Membership Sales Advisor Relationship Specialty Start Date End Date Sahara Cunningham, RAIL LAYER-SUPERINTENDENT CONCRETE MIXING PLANT [address] [facility] [address] [place] [phone] PCP - General 12/22/18
--- OUTSIDE RECORDS SUMMARY | 2025-09-07 18:01 | XMS_ITS | Patient Health Record ---
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 Name Role Phone Tico Patel MD Primary Care Provider Unavail able eTrra Lopez Unavailable [phone] Eunice Stock Unavailable [phone] Bradley Scott Unavailable [phone] Allergies No Known Allergies Reason For Referral No Information Medications Medication SIG (Take, Route, Frequency, Duration) Notes Start Date End Date Status Falmina 0.1-20 MG-MCG Tablet 1 tablet Or al Once a day 11/28/2023 Active Cyclobenzaprine HCl 10 MG Tablet 1 tablet at bedtime as needed Oral Once a day As needed 11/28/2023 Active Baclofen 10 MG Tablet 1 tablet as needed Oral Once a day As needed 11/28/2023 Active ARIPiprazole 5 MG Tablet 1 tablet Oral a t bedtime; Duration: 90 days Active traZODone HCl 100 MG Tablet 2 tablet ban ry night Oral bedtime; Duration: 90 days Active hydrOXYzine HCl 10 MG Tablet 1 tablet as needed Orally twice a day; Duration: 30 days Active Wegovy Active DULoxetine HCl 60 MG Capsule Delayed Release Particles 2 capsule Oral Once a day; Duration: 90 days 06/17/2025 Active Azelastine HCl 137 MCG/SPRAY Solution Nasal 11/28/2023 Active Losartan Potassium 50 MG Tablet Oral 11/28/19 24 Active Norethindrone 0.35 MG Tablet Oral 11/28/2023 Active hydroCHLOROthiazide 12.5 MG Capsule 1 capsule in the morning Oral Once a day 11/28/2023 Active Gabapentin 300 MG Capsule 1 capsule Oral Once a day 11/28/2023 Active Social History Sex Assigned At : Social History Observation Description Sex Assigned At Female Social History Additional Details Category Social Info Options Details Migrated Social History Migrated Social History Alcohol Intake: None 05/26/2023,Tobacco Years: Never smoker 05/26/2023 Problems Problem Type SNOMED Code ICD Code Onset Dates Problem Status W/U Status Risk Notes Problem Moderate recurrent major depression (04569859) Major depressive disorder, recurrent, moderate (F33.1) 11/28/19 Active confirmed Problem Generalized anxiety disorder (51640410) Generalized anxiety disorder (F41.1) 11/28/19 Active confirmed Problem Primary insomnia (7624661) Primary insomnia (F51.01) 11/28/19 Active confirmed Problem Attention deficit hyperactivity disorder, combined type (74512093) Attention-deficit hyperactivity disorder, combined type (F90.2) 11/28/19 Active confirmed Problem Attention deficit hyperactivity disorder (376168720) Attention-deficit hyperactivity disorder, unspecified type (F90.9) Active confirmed Problem Sleep apnea (23545178) Sleep apnea, unspecified (G47.30) 05/26/20 Active confirmed Problem Screening for cardiovascular system disease (311317001) Encounter for screening for cardiovascular disorders (Z13.6) Active confirmed Problem Long-term current use of drug therapy (276666490) 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) 11/28/19 Active confirmed Problem Depression Screening (312390545) Encounter for screening for depression (Z13.31) Active confirmed Problem Mild recurrent major depression (07093628) MDD (major depressive disorder), recurrent episode, mild (F33.0) Active confirmed Problem Essential hypertension (55628061) Benign essential HTN (I10) Active confirmed Vital Signs Heart Rate 85 /min 06/17/2025 Respiratory Rate 20 /min 06/17/2025 Height-cm 177.8 cm 06/17/2025 Blood pressure diastolic 80 mm Hg 06/17/2025 Weight-kg 145.15 kg 06/17/2025 Height 70.00 in 06/17/2025 Blood pressure systolic 128 mm Hg 06/17/2025 Weight 320 lbs 06/17/2025 BMI 45.91 kg/m2 06/17/2025 Encounters Encounter Location Date Provider Diagnosis [facility] [address] [address] 09/14/2024 Bradley Scott Generalized anxiety disorder F41.1 ; Primary insomnia F51.01 and Major depressive disorder, recurrent, moderate F33.1 [place] [address] [place] [address] 10/19/2024 Terra Lopez Generalized anxiety disorder F41.1 ; Primary insomnia F51.01 ; Major depressive disorder, recurrent, moderate F33.1 and Benign essential HTN I10 [place] [address] [place] [address] 12/13/2024 Terra Lopez Encounter for screening for depression Z13.31 ; Encounter for screening for cardiovascular disorders Z13.6 ; Generalized anxiety disorder F41.1 ; Primary insomnia F51.01 ; Major depressive disorder, recurrent, moderate F33.1 and Benign essential HTN I10 [place] [address] [place] [address] 12/18/2024 Eunice Kurtz [place] [address] [place] [address] 01/08/2025 Eunice Kurtz Generalized anxiety disorder F41.1 ; Major depressive disorder, recurrent, moderate F33.1 and Attention-deficit hyperactivity disorder, unspecified type F90.9 [place] [address] [place] [address] 01/29/2025 Eunice Kurtz Generalized anxiety disorder F41.1 and Major depressive disorder, recurrent, moderate F33.1 [place] [address] [place] [address] 02/19/2025 Eunice Kurtz Major depressive disorder, recurrent, moderate F33.1 and Generalized anxiety disorder F41.1 [place] [address] [place] [address] 03/12/2025 Eunice Kurtz Major depressive disorder, recurrent, moderate F33.1 and Generalized anxiety disorder F41.1 [place] [address] [place] [address] 03/14/2025 Terra Lopez Encounter for screening for cardiovascular disorders Z13.6 ; Generalized anxiety disorder F41.1 ; Encounter for screening for depression Z13.31 ; Primary insomnia F51.01 ; Benign essential HTN I10 and MDD (major depressive disorder), recurrent episode, mild F33.0 [facility] [address] [place] [address] 06/17/2025 Terra Lopez Generalized anxiety disorder F41.1 ; Primary insomnia F51.01 and MDD (major depressive disorder), recurrent episode, mild F33.0 [facility] [address] [place] [address] 08/22/2025 Eunice Kurtz Major depressive disorder, recurrent, moderate F33.1 ; Generalized anxiety disorder F41.1 and Attention-deficit hyperactivity disorder, combined type F90.2 [facility] [address] [place] [address] 09/14/2024 Terra Lopez [facility] [employer] [facility] [address] [place] [address] 09/17/2024 Terra Lopez Assessments Encounter Date Diagnosis (ICD Code) Assessment Notes Treatment Notes Treatment Clinical Notes Section Notes 09/14/2024 Generalized anxiety disorder (ICD-10 - F41.1) Learning About Generalized Anxiety Disorder material was published, Generalized Anxiety Disorder: Care Instructions material was published, Learning About Anxiety Disorders material was published 1. Anxiety and Panic Attacks - pt reports she is taking duloxetine at night. - advised her to take this medication in the morning as it can cause insomnia if taken at night. - Consider therapy for additional support. - Patient is getting very poor sleep the past 2 days - Pharmacy filled trazadone 100 mg po HS (she usually takes 200 mg po HS) - recent respiratory illness - Monitor her response to treatment and adjust as needed. - Patient rates anxiety as 10/10. 2. Insomnia - Reinstate trazodone 100mg, 2 tablets at bedtime (200mg total). - the past 2 days patient has been taking 100mg HS resulting in poor sleep. - discussed poor sleep and noncompliance with NPPV can increase anxiety. - Prescribe trazodone for 90 days, 180 tablets, two tablets a day. - Encourage her use of melatonin as an eiyw-vci-jipxnc r supplement. - Monitor her sleep patterns and adjust treatment as needed. - Patient reports only getting 1-2 hours of sleep at a time. 3. Depression - Continue duloxetine 60mg 2 tablets daily. - patient reports she has been taking duloxetine dose at night. educated the patient that this medication can be activating and it should be taken during the day to prevent insomnia. - Prescribe duloxetine, 60mg capsules, two capsules for 90 days, 180 capsules. - Encourage her re-engagement in therapy. - Monitor her response to treatment and adjust as needed. - Patient rates depression as 8/10. 4. Perimenopausal Symptoms - Educate on the correlation between hormone fluctuations and anxiety. - Monitor her symptoms and consider hormone therapy if needed. - Patient reports hot flashes. 5. Medication Management - Continue aripiprazole 5mg at bedtime. - Prescribe aripiprazole for 90 days, one at bedtime. - Instruct patient to take duloxetine in the morning and aripiprazole at night. - refill trazodone at 200 mg HS. - discussed OTC melatonin. 6. CPAP Noncompliance - Encourage patient to resume using CPAP machine. - Address her feelings of claustrophobia and suffocation with the CPAP machine. - Monitor her sleep quality and consider alternative treatments if necessary. 7. Dehydration and Near-Syncope - patient reports syncope with position changes. - educated the patient at standing up slowly. - discussed compression stockings. - Educate on the importance of hydration. - Monitor her for recurrence and consider further evaluation if needed. - Patient experienced near-syncope when standing up. 8. Therapy - Encourage patient to consider re-engaging in therapy with Eunice or another therapist. - Monitor her progress and adjust treatment plan as needed. - Patient finished therapy with Eunice previously but is open to returning. 09/14/2024 Primary insomnia (ICD-10 - F51.01) Insomnia: Care Instructions material was published, Learning About Sleeping Well material was published 1. Anxiety and Panic Attacks - pt reports she is taking duloxetine at night. - advised her to take this medication in the morning as it can cause insomnia if taken at night. - Consider therapy for additional support. - Patient is getting very poor sleep the past 2 days - Pharmacy filled trazadone 100 mg po HS (she usually takes 200 mg po HS) - recent respiratory illness - Monitor her response to treatment and adjust as needed. - Patient rates anxiety as 10/10. 2. Insomnia - Reinstate trazodone 100mg, 2 tablets at bedtime (200mg total). - the past 2 days patient has been taking 100mg HS resulting in poor sleep. - discussed poor sleep and noncompliance with NPPV can increase anxiety. - Prescribe trazodone for 90 days, 180 tablets, two tablets a day. - Encourage her use of melatonin as an bgim-atz-wnxbvd r supplement. - Monitor her sleep patterns and adjust treatment as needed. - Patient reports only getting 1-2 hours of sleep at a time. 3. Depression - Continue duloxetine 60mg 2 tablets daily. - patient reports she has been taking duloxetine dose at night. educated the patient that this medication can be activating and it should be taken during the day to prevent insomnia. - Prescribe duloxetine, 60mg capsules, two capsules for 90 days, 180 capsules. - Encourage her re-engagement in therapy. - Monitor her response to treatment and adjust as needed. - Patient rates depression as 8/10. 4. Perimenopausal Symptoms - Educate on the correlation between hormone fluctuations and anxiety. - Monitor her symptoms and consider hormone therapy if needed. - Patient reports hot flashes. 5. Medication Management - Continue aripiprazole 5mg at bedtime. - Prescribe aripiprazole for 90 days, one at bedtime. - Instruct patient to take duloxetine in the morning and aripiprazole at night. - refill trazodone at 200 mg HS. - discussed OTC melatonin. 6. CPAP Noncompliance - Encourage patient to resume using CPAP machine. - Address her feelings of claustrophobia and suffocation with the CPAP machine. - Monitor her sleep quality and consider alternative treatments if necessary. 7. Dehydration and Near-Syncope - patient reports syncope with position changes. - educated the patient at standing up slowly. - discussed compression stockings. - Educate on the importance of hydration. - Monitor her for recurrence and consider further evaluation if needed. - Patient experienced near-syncope when standing up. 8. Therapy - Encourage patient to consider re-engaging in therapy with Eunice or another therapist. - Monitor her progress and adjust treatment plan as needed. - Patient finished therapy with Eunice previously but is open to returning. 10/19/2024 Generalized anxiety disorder (ICD-10 - F41.1) Learning About Generalized Anxiety Disorder material was published, Generalized Anxiety Disorder: Care Instructions material was published, Learning About Anxiety Disorders material was published 1. Anxiety and Panic Attacks -panic attacks improved- still have anxiety - Consider therapy for additional support. - Monitor her response to treatment and adjust as needed. Discuss and educated on Vistaril 10 mg twice a day as needed for anxiety and panic 2. Insomnia - trazodone 100mg, 2 tablets at bedtime (200mg total). - Monitor her sleep patterns and adjust treatment as needed. sleep hygeine 3. Depression - Continue duloxetine 60mg 2 tablets daily. Continue aripiprazole 5mg at bedtime. Continue - 4. Perimenopausal Symptoms- appt with EMPLOYMENT COUNSELOR scheduled - Educate on the correlation between hormone fluctuations and anxiety. - Monitor her symptoms and consider see EMPLOYMENT COUNSELOR and dicuss hormone therapy if needed. - Patient reports no hot flashes. 5 DON. CPAP compliance- - Encourage patient to conitnue using CPAP machine. - reported no feelings of claustrophobia and suffocation with the CPAP machine. - Monitor her sleep quality and consider alternative treatments if necessary. . hx Dehydration and Near-Syncope- seen PCP - improved and been drinking entire day and related to panic attacks - . Therapy- will schedule appt today - therapy with Eunice - Monitor her progress and adjust treatment plan as needed. - 12/13/2024 Encounter for screening for depression (ICD-10 - Z13.31) 1. Anxiety and Panic Attacks -panic attacks improved- - Consider therapy for additional support. - Monitor her response to treatment and adjust as needed Discuss and educated on Vistaril 10 mg twice a day as needed for anxiety and panic- PRN - reported taken 1-2 times - no refill needed 2. Insomnia - trazodone 100mg, 2 tablets at bedtime (200mg total). - Monitor her sleep patterns and adjust treatment as needed. sleep hygeine 3. Depression - Continue duloxetine 60mg 2 tablets daily. Continue aripiprazole 5mg at bedtime. 4. Perimenopausal Symptoms- appt with EMPLOYMENT COUNSELOR - labs done - on Vit D and IRON Prescribed Mounjaro for weight loss- 15 pounds in PT for knees- plan on going to gym - weight management program with EMPLOYMENT COUNSELOR 5 DON. CPAP compliance- - Encourage patient to conitnue using CPAP machine. - reported no feelings of claustrophobia and suffocation with the CPAP machine. - Monitor her sleep quality and consider alternative treatments if necessary. - therapy with Eunice - Monitor her progress and adjust treatment plan as needed. - 01/08/2025 Major depressive disorder, recurrent, moderate (ICD-10 - F33.1) 01/08/2025 Generalized anxiety disorder (ICD-10 - F41.1) 01/29/2025 Major depressive disorder, recurrent, moderate (ICD-10 - F33.1) 01/29/2025 Generalized anxiety disorder (ICD-10 - F41.1) 02/19/2025 Major depressive disorder, recurrent, moderate (ICD-10 - F33.1) 03/12/2025 Major depressive disorder, recurrent, moderate (ICD-10 - F33.1) 03/12/2025 Generalized anxiety disorder (ICD-10 - F41.1) 03/14/2025 Generalized anxiety disorder (ICD-10 - F41.1) Learning About Generalized Anxiety Disorder material was published, Generalized Anxiety Disorder: Care Instructions material was published, Learning About Anxiety Disorders material was published 1. Anxiety and Panic Attacks -panic attacks improved- - therapy for additional support. - Monitor her response to treatment and adjust as needed having intrusive thoughts - worried about family Discuss and educated on all rx patient reported not taken often Vistaril 10 mg twice a day as needed for anxiety and panic- PRN - no refill needed- educated to start taking Vistaril 10 mg twice to three times a day for anxiety and intrusive thoughts 2. Insomnia - trazodone 100mg, 2 tablets at bedtime (200mg total). - Monitor her sleep patterns and adjust treatment as needed. sleep hygeine 3. Depression - Continue duloxetine 60mg 2 tablets daily. Continue aripiprazole 5 mg at bedtime. discuss increase Abilify, pateint will wait at this time 4. 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 CPAP compliance- - Encourage patient to conitnue using CPAP machine. - reported no feelings of claustrophobia and suffocation with the CPAP machine. - Monitor her sleep quality and consider alternative treatments if necessary. - therapy with Eunice - Monitor her progress and adjust treatment plan as needed. - 03/14/2025 Encounter for screening for cardiovascular disorders (ICD-10 - Z13.6) 1. Anxiety and Panic Attacks -panic attacks improved- - therapy for additional support. - Monitor her response to treatment and adjust as needed having intrusive thoughts - worried about family Discuss and educated on all rx patient reported not taken often Vistaril 10 mg twice a day as needed for anxiety and panic- PRN - no refill needed- educated to start taking Vistaril 10 mg twice to three times a day for anxiety and intrusive thoughts 2. Insomnia - trazodone 100mg, 2 tablets at bedtime (200mg total). - Monitor her sleep patterns and adjust treatment as needed. sleep hygeine 3. Depression - Continue duloxetine 60mg 2 tablets daily. Continue aripiprazole 5 mg at bedtime. discuss increase Abilify, pateint will wait at this time 4. 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 CPAP compliance- - Encourage patient to conitnue using CPAP machine. - reported no feelings of claustrophobia and suffocation with the CPAP machine. - Monitor her sleep quality and consider alternative treatments if necessary. - therapy with Eunice - Monitor her progress and adjust treatment plan as needed. - 06/17/2025 Generalized anxiety disorder (ICD-10 - F41.1) Learning About Generalized Anxiety Disorder material was published, Generalized Anxiety Disorder: Care Instructions material was published, Learning About Anxiety Disorders material was published 1. Anxiety and Panic Attacks -panic attacks improved- - therapy for additional support. - Monitor her response to treatment and adjust as needed having intrusive thoughts - worried about family Discuss and educated on all rx patient reported not taken often Vistaril 10 mg twice a day as needed for anxiety and panic- PRN - no refill needed- Vistaril 10 mg twice to three times a day for anxiety and intrusive thoughts- PRN helps anxiety 2. Insomnia - trazodone 100mg, 2 tablets at bedtime (200mg total).- no refill needed - Monitor her sleep patterns and adjust treatment as needed. sleep hygeine 3. Depression - Continue duloxetine 60mg 2 tablets daily. pateint would like to GDR aripiprazole 2.5 mg at bedtime - see if helps weight. reported rx helps depression - no refill needed has new script 90 days of 5 mg dose will split in half discuss rx options and patient will wait to see how does with GDR Livan before adding new rx schedule therapy discuss and educated on proper use light box therapy 4. 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 CPAP compliance- - Encourage patient to conitnue using CPAP machine. - reported no feelings of claustrophobia and suffocation with the CPAP machine. - Monitor her sleep quality and consider alternative treatments if necessary. - therapy with Eunice - Monitor her progress and adjust treatment plan as needed. - 06/17/2025 Primary insomnia (ICD-10 - F51.01) Insomnia: Care Instructions material was published, Learning About Sleeping Well material was published 1. Anxiety and Panic Attacks -panic attacks improved- - therapy for additional support. - Monitor her response to treatment and adjust as needed having intrusive thoughts - worried about family Discuss and educated on all rx patient reported not taken often Vistaril 10 mg twice a day as needed for anxiety and panic- PRN - no refill needed- Vistaril 10 mg twice to three times a day for anxiety and intrusive thoughts- PRN helps anxiety 2. Insomnia - trazodone 100mg, 2 tablets at bedtime (200mg total).- no refill needed - Monitor her sleep patterns and adjust treatment as needed. sleep hygeine 3. Depression - Continue duloxetine 60mg 2 tablets daily. pateint would like to GDR aripiprazole 2.5 mg at bedtime - see if helps weight. reported rx helps depression - no refill needed has new script 90 days of 5 mg dose will split in half discuss rx options and patient will wait to see how does with STUR Livan before adding new rx schedule therapy discuss and educated on proper use light box therapy 4. 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 CPAP compliance- - Encourage patient to conitnue using CPAP machine. - reported no feelings of claustrophobia and suffocation with the CPAP machine. - Monitor her sleep quality and consider alternative treatments if necessary. - therapy with Eunice - Monitor her progress and adjust treatment plan as needed. - 08/22/2025 Major depressive disorder, recurrent, moderate (ICD-10 - F33.1) 08/22/2025 Generalized anxiety disorder (ICD-10 - F41.1) 08/22/2025 Attention-defici t hyperactivity disorder, combined type (ICD-10 - F90.2) 06/17/2025 MDD (major depressive disorder), recurrent episode, mild (ICD-10 - F33.0) 1. Anxiety and Panic Attacks -panic attacks improved- - therapy for additional support. - Monitor her response to treatment and adjust as needed having intrusive thoughts - worried about family Discuss and educated on all rx patient reported not taken often Vistaril 10 mg twice a day as needed for anxiety and panic- PRN - no refill needed- Vistaril 10 mg twice to three times a day for anxiety and intrusive thoughts- PRN helps anxiety 2. Insomnia - trazodone 100mg, 2 tablets at bedtime (200mg total).- no refill needed - Monitor her sleep patterns and adjust treatment as needed. sleep hygeine 3. Depression - Continue duloxetine 60mg 2 tablets daily. pateint would like to GDR aripiprazole 2.5 mg at bedtime - see if helps weight. reported rx helps depression - no refill needed has new script 90 days of 5 mg dose will split in half discuss rx options and patient will wait to see how does with GDR Livan before adding new rx schedule therapy discuss and educated on proper use light box therapy 4. 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 CPAP compliance- - Encourage patient to conitnue using CPAP machine. - reported no feelings of claustrophobia and suffocation with the CPAP machine. - Monitor her sleep quality and consider alternative treatments if necessary. - therapy with Eunice - Monitor her progress and adjust treatment plan as needed. - 03/14/2025 Encounter for screening for depression (ICD-10 - Z13.31) 1. Anxiety and Panic Attacks -panic attacks improved- - therapy for additional support. - Monitor her response to treatment and adjust as needed having intrusive thoughts - worried about family Discuss and educated on all rx patient reported not taken often Vistaril 10 mg twice a day as needed for anxiety and panic- PRN - no refill needed- educated to start taking Vistaril 10 mg twice to three times a day for anxiety and intrusive thoughts 2. Insomnia - trazodone 100mg, 2 tablets at bedtime (200mg total). - Monitor her sleep patterns and adjust treatment as needed. sleep hygeine 3. Depression - Continue duloxetine 60mg 2 tablets daily. Continue aripiprazole 5 mg at bedtime. discuss increase Abilify, pateint will wait at this time 4. 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 CPAP compliance- - Encourage patient to conitnue using CPAP machine. - reported no feelings of claustrophobia and suffocation with the CPAP machine. - Monitor her sleep quality and consider alternative treatments if necessary. - therapy with Eunice - Monitor her progress and adjust treatment plan as needed. - 02/19/2025 Generalized anxiety disorder (ICD-10 - F41.1) 01/08/2025 Attention-defici t hyperactivity disorder, unspecified type (ICD-10 - F90.9) 10/19/2024 Primary insomnia (ICD-10 - F51.01) Insomnia: Care Instructions material was published, Learning About Sleeping Well material was published 1. Anxiety and Panic Attacks -panic attacks improved- still have anxiety - Consider therapy for additional support. - Monitor her response to treatment and adjust as needed. Discuss and educated on Vistaril 10 mg twice a day as needed for anxiety and panic 2. Insomnia - trazodone 100mg, 2 tablets at bedtime (200mg total). - Monitor her sleep patterns and adjust treatment as needed. sleep hygeine 3. Depression - Continue duloxetine 60mg 2 tablets daily. Continue aripiprazole 5mg at bedtime. Continue - 4. Perimenopausal Symptoms- appt with EMPLOYMENT COUNSELOR scheduled - Educate on the correlation between hormone fluctuations and anxiety. - Monitor her symptoms and consider see EMPLOYMENT COUNSELOR and dicuss hormone therapy if needed. - Patient reports no hot flashes. 5 DON. CPAP compliance- - Encourage patient to conitnue using CPAP machine. - reported no feelings of claustrophobia and suffocation with the CPAP machine. - Monitor her sleep quality and consider alternative treatments if necessary. . hx Dehydration and Near-Syncope- seen PCP - improved and been drinking entire day and related to panic attacks - . Therapy- will schedule appt today - therapy with Eunice - Monitor her progress and adjust treatment plan as needed. - 09/14/2024 Major depressive disorder, recurrent, moderate (ICD-10 - F33.1) Second generation antipsychotics (SGAs) have metabolic syndrome issues with weight gain, increase in prolactin, increased waist circumference, increased lipids, and increased glucose. Thus routine monitoring of weight, metabolic labs, etc. is indicated. A general rank ordering of antipsychotics that have the greatest to the least risk of metabolic effects is olanzapine, quetiapine, risperidone, ziprasidone, and aripiprazole. However, weight gain can occur with all of these drugs and considerable variability exists among patients receiving the same drug regarding the risk of metabolic effects. Anti-psychotic agents not only increase the risk of metabolic disorder, they also increase the risk of CVA, akathisia, and movement disorders including EPS or tardive dyskinesia (more common with first generation antipsychotics) and more. Assessment and plan reviewed with patient Call for problems with medication, side effects or need for dosage change Compliance issues reviewed Discussed the risks/benefits of this medication Discussed medication side effects Return if symptoms worsen Treatment options reviewed. discussed that it can take weeks to see full therapeutic effects of psychotropic medications. discussed when to seek emergency services. discussed crisis prevention hotline 808. 1. Anxiety and Panic Attacks - pt reports she is taking duloxetine at night. - advised her to take this medication in the morning as it can cause insomnia if taken at night. - Consider therapy for additional support. - Patient is getting very poor sleep the past 2 days - Pharmacy filled trazadone 100 mg po HS (she usually takes 200 mg po HS) - recent respiratory illness - Monitor her response to treatment and adjust as needed. - Patient rates anxiety as 10/10. 2. Insomnia - Reinstate trazodone 100mg, 2 tablets at bedtime (200mg total). - the past 2 days patient has been taking 100mg HS resulting in poor sleep. - discussed poor sleep and noncompliance with NPPV can increase anxiety. - Prescribe trazodone for 90 days, 180 tablets, two tablets a day. - Encourage her use of melatonin as an muag-zmy-brxvks r supplement. - Monitor her sleep patterns and adjust treatment as needed. - Patient reports only getting 1-2 hours of sleep at a time. 3. Depression - Continue duloxetine 60mg 2 tablets daily. - patient reports she has been taking duloxetine dose at night. educated the patient that this medication can be activating and it should be taken during the day to prevent insomnia. - Prescribe duloxetine, 60mg capsules, two capsules for 90 days, 180 capsules. - Encourage her re-engagement in therapy. - Monitor her response to treatment and adjust as needed. - Patient rates depression as 8/10. 4. Perimenopausal Symptoms - Educate on the correlation between hormone fluctuations and anxiety. - Monitor her symptoms and consider hormone therapy if needed. - Patient reports hot flashes. 5. Medication Management - Continue aripiprazole 5mg at bedtime. - Prescribe aripiprazole for 90 days, one at bedtime. - Instruct patient to take duloxetine in the morning and aripiprazole at night. - refill trazodone at 200 mg HS. - discussed OTC melatonin. 6. CPAP Noncompliance - Encourage patient to resume using CPAP machine. - Address her feelings of claustrophobia and suffocation with the CPAP machine. - Monitor her sleep quality and consider alternative treatments if necessary. 7. Dehydration and Near-Syncope - patient reports syncope with position changes. - educated the patient at standing up slowly. - discussed compression stockings. - Educate on the importance of hydration. - Monitor her for recurrence and consider further evaluation if needed. - Patient experienced near-syncope when standing up. 8. Therapy - Encourage patient to consider re-engaging in therapy with Eunice or another therapist. - Monitor her progress and adjust treatment plan as needed. - Patient finished therapy with Eunice previously but is open to returning. 12/13/2024 Encounter for screening for cardiovascular disorders (ICD-10 - Z13.6) 1. Anxiety and Panic Attacks -panic attacks improved- - Consider therapy for additional support. - Monitor her response to treatment and adjust as needed Discuss and educated on Vistaril 10 mg twice a day as needed for anxiety and panic- PRN - reported taken 1-2 times - no refill needed 2. Insomnia - trazodone 100mg, 2 tablets at bedtime (200mg total). - Monitor her sleep patterns and adjust treatment as needed. sleep hygeine 3. Depression - Continue duloxetine 60mg 2 tablets daily. Continue aripiprazole 5mg at bedtime. 4. Perimenopausal Symptoms- appt with EMPLOYMENT COUNSELOR - labs done - on Vit D and IRON Prescribed Mounjaro for weight loss- 15 pounds in PT for knees- plan on going to gym - weight management program with EMPLOYMENT COUNSELOR 5 DON. CPAP compliance- - Encourage patient to conitnue using CPAP machine. - reported no feelings of claustrophobia and suffocation with the CPAP machine. - Monitor her sleep quality and consider alternative treatments if necessary. - therapy with Eunice - Monitor her progress and adjust treatment plan as needed. - 10/19/2024 Major depressive disorder, recurrent, moderate (ICD-10 - F33.1) Second generation antipsychotics (SGAs) have metabolic syndrome issues with weight gain, increase in prolactin, increased waist circumference, increased lipids, and increased glucose. Thus routine monitoring of weight, metabolic labs, etc. is indicated. A general rank ordering of antipsychotics that have the greatest to the least risk of metabolic effects is olanzapine, quetiapine, risperidone, ziprasidone, and aripiprazole. However, weight gain can occur with all of these drugs and considerable variability exists among patients receiving the same drug regarding the risk of metabolic effects. Anti-psychotic agents not only increase the risk of metabolic disorder, they also increase the risk of CVA, akathisia, and movement disorders including EPS or tardive dyskinesia (more common with first generation antipsychotics) and more. Assessment and plan reviewed with patient Call for problems with medication, side effects or need for dosage change Compliance issues reviewed Discussed the risks/benefits of this medication Discussed medication side effects Return if symptoms worsen Treatment options reviewed. discussed that it can take weeks to see full therapeutic effects of psychotropic medications. discussed when to seek emergency services. discussed crisis prevention hotline 988. 1. Anxiety and Panic Attacks -panic attacks improved- still have anxiety - Consider therapy for additional support. - Monitor her response to treatment and adjust as needed. Discuss and educated on Vistaril 10 mg twice a day as needed for anxiety and panic 2. Insomnia - trazodone 100mg, 2 tablets at bedtime (200mg total). - Monitor her sleep patterns and adjust treatment as needed. sleep hygeine 3. Depression - Continue duloxetine 60mg 2 tablets daily. Continue aripiprazole 5mg at bedtime. Continue - 4. Perimenopausal Symptoms- appt with EMPLOYMENT COUNSELOR scheduled - Educate on the correlation between hormone fluctuations and anxiety. - Monitor her symptoms and consider see EMPLOYMENT COUNSELOR and dicuss hormone therapy if needed. - Patient reports no hot flashes. 5 DON. CPAP compliance- - Encourage patient to conitnue using CPAP machine. - reported no feelings of claustrophobia and suffocation with the CPAP machine. - Monitor her sleep quality and consider alternative treatments if necessary. . hx Dehydration and Near-Syncope- seen PCP - improved and been drinking entire day and related to panic attacks - . Therapy- will schedule appt today - therapy with Eunice - Monitor her progress and adjust treatment plan as needed. - 12/13/2024 Generalized anxiety disorder (ICD-10 - F41.1) Learning About Generalized Anxiety Disorder material was published, Generalized Anxiety Disorder: Care Instructions material was published, Learning About Anxiety Disorders material was published 1. Anxiety and Panic Attacks -panic attacks improved- - Consider therapy for additional support. - Monitor her response to treatment and adjust as needed Discuss and educated on Vistaril 10 mg twice a day as needed for anxiety and panic- PRN - reported taken 1-2 times - no refill needed 2. Insomnia - trazodone 100mg, 2 tablets at bedtime (200mg total). - Monitor her sleep patterns and adjust treatment as needed. sleep hygeine 3. Depression - Continue duloxetine 60mg 2 tablets daily. Continue aripiprazole 5mg at bedtime. 4. Perimenopausal Symptoms- appt with EMPLOYMENT COUNSELOR - labs done - on Vit D and IRON Prescribed Mounjaro for weight loss- 15 pounds in PT for knees- plan on going to gym - weight management program with EMPLOYMENT COUNSELOR 5 DON. CPAP compliance- - Encourage patient to conitnue using CPAP machine. - reported no feelings of claustrophobia and suffocation with the CPAP machine. - Monitor her sleep quality and consider alternative treatments if necessary. - therapy with Eunice - Monitor her progress and adjust treatment plan as needed. - 03/14/2025 Primary insomnia (ICD-10 - F51.01) Insomnia: Care Instructions material was published, Learning About Sleeping Well material was published 1. Anxiety and Panic Attacks -panic attacks improved- - therapy for additional support. - Monitor her response to treatment and adjust as needed having intrusive thoughts - worried about family Discuss and educated on all rx patient reported not taken often Vistaril 10 mg twice a day as needed for anxiety and panic- PRN - no refill needed- educated to start taking Vistaril 10 mg twice to three times a day for anxiety and intrusive thoughts 2. Insomnia - trazodone 100mg, 2 tablets at bedtime (200mg total). - Monitor her sleep patterns and adjust treatment as needed. sleep hygeine 3. Depression - Continue duloxetine 60mg 2 tablets daily. Continue aripiprazole 5 mg at bedtime. discuss increase Abilify, pateint will wait at this time 4. 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 CPAP compliance- - Encourage patient to conitnue using CPAP machine. - reported no feelings of claustrophobia and suffocation with the CPAP machine. - Monitor her sleep quality and consider alternative treatments if necessary. - therapy with Eunice - Monitor her progress and adjust treatment plan as needed. - 12/13/2024 Primary insomnia (ICD-10 - F51.01) Insomnia: Care Instructions material was published, Learning About Sleeping Well material was published 1. Anxiety and Panic Attacks -panic attacks improved- - Consider therapy for additional support. - Monitor her response to treatment and adjust as needed Discuss and educated on Vistaril 10 mg twice a day as needed for anxiety and panic- PRN - reported taken 1-2 times - no refill needed 2. Insomnia - trazodone 100mg, 2 tablets at bedtime (200mg total). - Monitor her sleep patterns and adjust treatment as needed. sleep hygeine 3. Depression - Continue duloxetine 60mg 2 tablets daily. Continue aripiprazole 5mg at bedtime. 4. Perimenopausal Symptoms- appt with EMPLOYMENT COUNSELOR - labs done - on Vit D and IRON Prescribed Mounjaro for weight loss- 15 pounds in PT for knees- plan on going to gym - weight management program with EMPLOYMENT COUNSELOR 5 DON. CPAP compliance- - Encourage patient to conitnue using CPAP machine. - reported no feelings of claustrophobia and suffocation with the CPAP machine. - Monitor her sleep quality and consider alternative treatments if necessary. - therapy with Eunice - Monitor her progress and adjust treatment plan as needed. - 10/19/2024 Benign essential HTN (ICD-10 - I10) 1. Anxiety and Panic Attacks -panic attacks improved- still have anxiety - Consider therapy for additional support. - Monitor her response to treatment and adjust as needed. Discuss and educated on Vistaril 10 mg twice a day as needed for anxiety and panic 2. Insomnia - trazodone 100mg, 2 tablets at bedtime (200mg total). - Monitor her sleep patterns and adjust treatment as needed. sleep hygeine 3. Depression - Continue duloxetine 60mg 2 tablets daily. Continue aripiprazole 5mg at bedtime. Continue - 4. Perimenopausal Symptoms- appt with EMPLOYMENT COUNSELOR scheduled - Educate on the correlation between hormone fluctuations and anxiety. - Monitor her symptoms and consider see EMPLOYMENT COUNSELOR and dicuss hormone therapy if needed. - Patient reports no hot flashes. 5 DON. CPAP compliance- - Encourage patient to conitnue using CPAP machine. - reported no feelings of claustrophobia and suffocation with the CPAP machine. - Monitor her sleep quality and consider alternative treatments if necessary. . hx Dehydration and Near-Syncope- seen PCP - improved and been drinking entire day and related to panic attacks - . Therapy- will schedule appt today - therapy with Eunice - Monitor her progress and adjust treatment plan as needed. - 03/14/2025 Benign essential HTN (ICD-10 - I10) 1. Anxiety and Panic Attacks -panic attacks improved- - therapy for additional support. - Monitor her response to treatment and adjust as needed having intrusive thoughts - worried about family Discuss and educated on all rx patient reported not taken often Vistaril 10 mg twice a day as needed for anxiety and panic- PRN - no refill needed- educated to start taking Vistaril 10 mg twice to three times a day for anxiety and intrusive thoughts 2. Insomnia - trazodone 100mg, 2 tablets at bedtime (200mg total). - Monitor her sleep patterns and adjust treatment as needed. sleep hygeine 3. Depression - Continue duloxetine 60mg 2 tablets daily. Continue aripiprazole 5 mg at bedtime. discuss increase Abilify, pateint will wait at this time 4. Perimenopausal Symptoms- EMPLOYMENT COUNSELOR - labs done - on Vit D and IRON Prescribed Mobrunaro for weight loss- 25 pounds in PT for knees- going to gym - weight management program with EMPLOYMENT COUNSELOR 5 DON. CPAP compliance- - Encourage patient to conitnue using CPAP machine. - reported no feelings of claustrophobia and suffocation with the CPAP machine. - Monitor her sleep quality and consider alternative treatments if necessary. - therapy with Eunice - Monitor her progress and adjust treatment plan as needed. - 12/13/2024 Major depressive disorder, recurrent, moderate (ICD-10 - F33.1) Second generation antipsychotics (SGAs) have metabolic syndrome issues with weight gain, increase in prolactin, increased waist circumference, increased lipids, and increased glucose. Thus routine monitoring of weight, metabolic labs, etc. is indicated. A general rank ordering of antipsychotics that have the greatest to the least risk of metabolic effects is olanzapine, quetiapine, risperidone, ziprasidone, and aripiprazole. However, weight gain can occur with all of these drugs and considerable variability exists among patients receiving the same drug regarding the risk of metabolic effects. Anti-psychotic agents not only increase the risk of metabolic disorder, they also increase the risk of CVA, akathisia, and movement disorders including EPS or tardive dyskinesia (more common with first generation antipsychotics) and more. Assessment and plan reviewed with patient Call for problems with medication, side effects or need for dosage change Compliance issues reviewed Discussed the risks/benefits of this medication Discussed medication side effects Return if symptoms worsen Treatment options reviewed. discussed that it can take weeks to see full therapeutic effects of psychotropic medications. discussed when to seek emergency services. discussed crisis prevention hotline 988. 1. Anxiety and Panic Attacks -panic attacks improved- - Consider therapy for additional support. - Monitor her response to treatment and adjust as needed Discuss and educated on Vistaril 10 mg twice a day as needed for anxiety and panic- PRN - reported taken 1-2 times - no refill needed 2. Insomnia - trazodone 100mg, 2 tablets at bedtime (200mg total). - Monitor her sleep patterns and adjust treatment as needed. sleep hygeine 3. Depression - Continue duloxetine 60mg 2 tablets daily. Continue aripiprazole 5mg at bedtime. 4. Perimenopausal Symptoms- appt with EMPLOYMENT COUNSELOR - labs done - on Vit D and IRON Prescribed Mounjaro for weight loss- 15 pounds in PT for knees- plan on going to gym - weight management program with EMPLOYMENT COUNSELOR 5 DON. CPAP compliance- - Encourage patient to conitnue using CPAP machine. - reported no feelings of claustrophobia and suffocation with the CPAP machine. - Monitor her sleep quality and consider alternative treatments if necessary. - therapy with Eunice - Monitor her progress and adjust treatment plan as needed. - 03/14/2025 MDD (major depressive disorder), recurrent episode, mild (ICD-10 - F33.0) 1. Anxiety and Panic Attacks -panic attacks improved- - therapy for additional support. - Monitor her response to treatment and adjust as needed having intrusive thoughts - worried about family Discuss and educated on all rx patient reported not taken often Vistaril 10 mg twice a day as needed for anxiety and panic- PRN - no refill needed- educated to start taking Vistaril 10 mg twice to three times a day for anxiety and intrusive thoughts 2. Insomnia - trazodone 100mg, 2 tablets at bedtime (200mg total). - Monitor her sleep patterns and adjust treatment as needed. sleep hygeine 3. Depression - Continue duloxetine 60mg 2 tablets daily. Continue aripiprazole 5 mg at bedtime. discuss increase Abilify, pateint will wait at this time 4. 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 CPAP compliance- - Encourage patient to conitnue using CPAP machine. - reported no feelings of claustrophobia and suffocation with the CPAP machine. - Monitor her sleep quality and consider alternative treatments if necessary. - therapy with Eunice - Monitor her progress and adjust treatment plan as needed. - 12/13/2024 Benign essential HTN (ICD-10 - I10) 1. Anxiety and Panic Attacks -panic attacks improved- - Consider therapy for additional support. - Monitor her response to treatment and adjust as needed Discuss and educated on Vistaril 10 mg twice a day as needed for anxiety and panic- PRN - reported taken 1-2 times - no refill needed 2. Insomnia - trazodone 100mg, 2 tablets at bedtime (200mg total). - Monitor her sleep patterns and adjust treatment as needed. sleep hygeine 3. Depression - Continue duloxetine 60mg 2 tablets daily. Continue aripiprazole 5mg at bedtime. 4. Perimenopausal Symptoms- appt with EMPLOYMENT COUNSELOR - labs done - on Vit D and IRON Prescribed Mounjaro for weight loss- 15 pounds in PT for knees- plan on going to gym - weight management program with EMPLOYMENT COUNSELOR 5 DON. CPAP compliance- - Encourage patient to conitnue using CPAP machine. - reported no feelings of claustrophobia and suffocation with the CPAP machine. - Monitor her sleep quality and consider alternative treatments if necessary. - therapy with Eunice - Monitor her progress and adjust treatment plan as needed. - 09/14/2024 Other Learning About Sleep Apnea material was published, Sleep Apnea: Care Instructions material was published Medication Refill: Care Instructions material was published Attention Deficit Hyperactivity Disorder (ADHD) in Adults: Care Instructions material was published 1. Anxiety and Panic Attacks - pt reports she is taking duloxetine at night. - advised her to take this medication in the morning as it can cause insomnia if taken at night. - Consider therapy for additional support. - Patient is getting very poor sleep the past 2 days - Pharmacy filled trazadone 100 mg po HS (she usually takes 200 mg po HS) - recent respiratory illness - Monitor her response to treatment and adjust as needed. - Patient rates anxiety as 10/10. 2. Insomnia - Reinstate trazodone 100mg, 2 tablets at bedtime (200mg total). - the past 2 days patient has been taking 100mg HS resulting in poor sleep. - discussed poor sleep and noncompliance with NPPV can increase anxiety. - Prescribe trazodone for 90 days, 180 tablets, two tablets a day. - Encourage her use of melatonin as an glft-cvw-gwicza r supplement. - Monitor her sleep patterns and adjust treatment as needed. - Patient reports only getting 1-2 hours of sleep at a time. 3. Depression - Continue duloxetine 60mg 2 tablets daily. - patient reports she has been taking duloxetine dose at night. educated the patient that this medication can be activating and it should be taken during the day to prevent insomnia. - Prescribe duloxetine, 60mg capsules, two capsules for 90 days, 180 capsules. - Encourage her re-engagement in therapy. - Monitor her response to treatment and adjust as needed. - Patient rates depression as 8/10. 4. Perimenopausal Symptoms - Educate on the correlation between hormone fluctuations and anxiety. - Monitor her symptoms and consider hormone therapy if needed. - Patient reports hot flashes. 5. Medication Management - Continue aripiprazole 5mg at bedtime. - Prescribe aripiprazole for 90 days, one at bedtime. - Instruct patient to take duloxetine in the morning and aripiprazole at night. - refill trazodone at 200 mg HS. - discussed OTC melatonin. 6. CPAP Noncompliance - Encourage patient to resume using CPAP machine. - Address her feelings of claustrophobia and suffocation with the CPAP machine. - Monitor her sleep quality and consider alternative treatments if necessary. 7. Dehydration and Near-Syncope - patient reports syncope with position changes. - educated the patient at standing up slowly. - discussed compression stockings. - Educate on the importance of hydration. - Monitor her for recurrence and consider further evaluation if needed. - Patient experienced near-syncope when standing up. 8. Therapy - Encourage patient to consider re-engaging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
--- OUTSIDE RECORDS SUMMARY | 2025-09-07 18:01 | XMS_ITS | Clinical Summary ---
Author Organization [facility] Address [address] [place] [address] Care Team Providers Care Healthcare Specialist Name Role Phone Paige Bhatt APRN, [employer] Primary Care Provider Sahara Cunningham MEDICAL [employer]ER Unavailable [phone] Allergies Active Allergy Reactions Criticality Noted Date Comments Sulfa Antibiotics Unknown 01/05/2016 Sulfamethoxazole-Trimethoprim Unknown 2015 Medications losartan-hydroch lorothiazide (HYZAAR) 50-12.5 MG Tablet 12/09/2015 Active traZODone (DESYREL) 100 MG Tablet 11/03/2015 Active gabapentin (NEURONTIN) 300 MG Capsule Take 300 mg by mouth 2 times daily. Active DULoxetine (CYMBALTA) [address] Particles 06/27/2018 Active Omeprazole (PRILOSEC PO) Take by mouth. Active cetirizine (ZYRTEC ALLERGY) 10 MG Tablet Take 10 mg by mouth daily. Active meloxicam (MOBIC) 15 MG Tablet 1 tablet daily with food as needed for pain. 30 Tab 1 03/07/2020 Active baclofen (LIORESAL) 10 MG Tablet Take 1 Tab by mouth 2 times daily as needed for Muscle spasms. 60 Tab 1 03/07/2020 Active Active Problems Problem Noted Date Diagnosed Date Sacroiliac joint dysfunction of left side 2017 Lumbar facet arthropathy 04/03/2018 Family History Medical History Relation Name Comments Hypertension Father Relation Name Status Comments Father Mother Alive Social History Tobacco Use Types Packs/Day Years Used Date Smoking Tobacco: Never Alcohol Use Standard Drinks/Week Comments No 0 (1 standard drink = 0.6 oz pur e alcohol) Comments No Sex and Gender Information Value Date Recorded Sex Assigned at Not on file Legal Sex Female 4:40 PM [employer] Gender Identity Not on file Sexual Orientation Not on file Last Filed Vital Signs Vital Sign Reading Time Taken Comments Blood Pressure 150/78 03/19/2020 11:02 AM CDT Pulse 86 03/19/2020 11:00 AM CDT Temperature 36.9 C (98.5 F) 03/19/2020 11:00 AM CDT Respiratory Rate 16 03/07/2020 8:56 AM CDT Oxygen Saturation 98% 03/19/2020 11:00 AM CDT Inhaled Oxygen Concentration - - Weight 146 kg (321 lb 12.8 oz) 01/05/2016 9:37 A M CDT Height 175.3 cm (5' 9) 01/05/2016 9:37 AM CDT Body Mass Index 47.52 01/05/2016 9:37 AM CDT Plan of Treatment Health Maintenance Due Date Last Done Comments Hepatitis C Virus (HCV) Screening 1974 TdaP Immunization 1974 Hepatitis B Immunization (1 of 3 - 19+ 3-dose series) 1993 Pap Smear 1995 Cervical Cancer Screening (CCS) 2004 HPV/Cotest 2004 Cologuard 2019 Colonoscopy 2019 Colorectal Cancer Screening 2019 Immunochemical Fecal Occult Blood 2019 Pneumococcal Immunization (50+ years) (1 of 1 - PCV) 2024 Zoster Immunization (1 of 2) 2024 Influenza Immunization (#1) 2025 1009/2020, 07/08/2020, 08/23/2019, Additional history exists SARS-COV-2 Immunization ( season) 2025 09/14/2021, 11/29/2020, 11/01/2020 Respiratory Syncytial Virus (RSV) Immunization (Adult) (1 - 1-dose 75+ series) 2049 Human Papillomavirus (HPV) Immunization (No Doses Required) Completed Meningococcal Immunization (ACWY) Aged Out No longer eligible based on patient's age to complete this topic Rotavirus Immunization Aged Out No lo nger eligible based on patient's age to complete this topic Insurance MEDICAID [place] Care Teams Healthcare Specialist Relationship Specialty Start Date End Date Paige Bhatt APRN, [employer] [address] [place] [address] PCP - General Advanced Practice Nurse 08/04/21 Sahara Cunningham APRN [address] [place] [address] [place] [address] Family Medicine 08/04/21
--- OUTSIDE RECORDS SUMMARY | 2025-09-07 18:01 | XMS_ITS | Data Portability ---
Author Organization [place] [facility], Main Office Address [address] [place] [address] Care Team Providers Care Gold Nib Grinder Name Role Phone ASHU SERRANO Primary Care Provider ASHU SERRANO Referring Provider Assessment Encounter Date Assessment Date Assessment LastModified by Organization Details LastModified Time 11/05/2024 11/05/2024 HPI: A 49-year-old female patient presents with right knee pain that she has experienced for several years. She recalls being informed at the age of 18 that she would likely have ongoing issues with both of her patellae due to their lateral alignment. The patient reports that for the past month, she has noticed constant popping in her right knee. She localizes the pain to the anterior aspect of the knee, which can radiate to the posterior area. She describes the sensation as feeling like a band around her knee and rates her pain as 6 out of 10. Occasionally, she experiences knee swelling, stiffness, and a catching sensation. Although she has not experienced patellar dislocations, she mentions that extending her leg often causes a popping sound followed by temporary relief. She currently takes anti-inflammatory medication twice daily and has attempted to manage her symptoms with ice, home exercises, and CBD oil. The patient also reports unexplained weight gain and is working with her other doctors to figure out the underlying cause. ROS: Per patient questionnaire Physical Exam: General: Normal appearance. No acute distress. BMI 50.2 Inspection: No evidence of swelling, erythema, bruising or deformity. Palpation: Tenderness to palpation along the lateral and medial joint line ROM: 5-120 Special Test: Pain with terminal flexion. Negative Chad, Negative Patellar grind. Negative Sandhya. No valgus or varus instability. Negative Posterior Draw. Motor: 5/5 strength.Sandhya Sensation: Sensation intact. Imaging: Xray reviewed. No fractures. Severe patellofemoral arthritis: severe loss of joint space in both patellofemoral compartments associated with osteophytes and subchondral sclerosis. Moderate osteoarthritis of both knees: Reveals loss of joint space in medial compartments. Assessment & Plan: She has severe PF arthritis possibly due to chronic maltracking given her history. PT to work on strengthening and ROM. Rx for Meloxicam. I discussed with the patient the potential risk of taking chronic NSAIDs with their underlying medical condition. Advised to take anti-inflammatori es as needed. Continue to work on weight loss. Follow Up: 6-8 weeks after a course of PT. If she fails PT we can consider an injection. All questions were answered. Patient verbalized understanding of treatment plan [email or web address] Not available 11/06/2024 13:49:41 12/28/2024 12/28/2024 49-year-old patient presents for follow up of right knee pain that she has experienced for several years, mostly patellar related. At her last appointment we send her to physical therapy and started meloxicam. She states the knee is feeling much better, 2/10 pain. She is taking ibuprofen instead of the meloxicam. She has 2 therapy sessions left and plans to start going to the gym to work on exercises on her own once she is done. Physical Exam: BMI 50.2. Nonantalgic gait. No tenderness to palpation. ROM 0-130. Minimal pain with terminal flexion. Negative Chad, stable ligaments. We discussed that if she is doing well after she completes therapy she can continue to do the exercises on her own and take [id number] anti-inflammatori es. If the pain progresses when she starts doing more at the gym she may return and our next step would be a cortisone injection. She is in agreement with this plan. [email or web address] Not available 12/28/2024 09:47:02 Plan of Treatment Reminders Order Date Submit Date Provider Last Modified By Organization Details Last Modified Time Details Appointments None recorded. Lab None recorded. Referral physical therapist referral - Please schedule for R knee. thanks 2024 025 [facility] Gil Nguyen W Wendy Victoria, [place], [address], 14:25:21 Procedures None recorded. Surgeries None recorded. Imaging XR, knee, 3 view 2024 025 [email or web address] [facility] [place], [address], [place], [address], 5 13:49:17 Medication Orders meloxicam 15 mg tablet 2024 025 scott [facility] [id number] In [facility], [place], [address], 22:48:22 Patient TargetsNo targets recorded. Patient InstructionsNo instructions recorded. Reason for Referral Physical Therapist Referral for Pain of right knee joint R knee Please schedule for R knee. thanks Referring Physician: Zehra Hutchison, Orthopedic Surgery, Encounter Date: 11/05/2024 Results Created Date Observation Date Name Description Value Unit Range Abnormal Flag Note LastModifiedBy Organization Detail LastModifiedTime 11/05/19 25 XR, knee, 3 view No observ ation record ed. [email or web address] [facility] [place] [address], [address], 11/06/2024 13:49:16 Result Notes None recorded. Problems Name Problem SNOMED Code Status Onset Date Resolution Date Notes Provider Name and Address Organization Details Recorded Time Pain of right knee joint 7162638769066 00 Active 2024 Lilia Johnson ATC L [facility], [employer] 5 14:54:15 Bilateral osteoarthri tis of knees 0159373878593 07 Active 2024 Zehra Hutchison PA-C [address] [place] [address], [facility] [address], [place], [address] , [employer] 5 13:48:33 Problem Notes None recorded. Procedures Surgical History Date Name Laterality Status Provider Name and Address Organization Details Recorded Time 2 Hernia Repair completed EMMANUELLE Bedoya [employer] 11/05/2024 15:03:44 7 procedure on gallbladder completed Lilia Healyayla, ATC L [employer] [facility] [employer] 11/05/2024 15:03:31 Imaging Results None recorded. Procedure Notes None recorded. Medical Equipment None Reported. Allergies Allergen ID Allergen Name Allergen Category Reaction Reaction Severity Criticality Documentation Date Start Date Code Code System Note Provider Name and Address Organization Details Recorded Time 23215 latex environme nt,medica tion Not available Not available Not available 11/05/2024 68424 91 RxNorm Lilia Healyayla , ATC L null, [employer] 15:00:18 92299 Acetamino phen / Propoxyph luz medicatio n Not available Not available Not available 11/05/2024 56139 RxNorm Lilia Healyayla , ATC L null, [employer] [facility] [employer] 15:01:20 06728 propoxyph luz medicatio n nausea Not available Not available 09/03/2025 8785 RxNorm React ion: nause a, Not Available [employer] [facility] [employer] 14:20:02 46306 sulfameth oxazole / trimethop rim medicatio n Not available Not available Not available 09/03/20252015 19657 RxNorm unrec ogniz ed react ion (text : Unkno wn, code: [id number]) (from [facility]) Not Available [employer] 14:20:07 Medications Name Sig Start Date Stop Date Status Note LastModified by Organization Details LastModified Time losartan 50 mg tablet TAKE 1 TABLET BY MOUTH EVERY DAY active Not Available Not Available No t Available amoxicillin 500 mg capsule TAKE 1 CAPSULE BY MOUTH FOUR TIMES A DAY UNTIL GONE 11/05 completed Not Available Not Available Not Available hydrocodone 5 mg-acetamin ophen 325 mg tablet TAKE 1 TABLET BY MOUTH EVERY 4 TO 6 HOURS NEEDED FOR PAIN 11/05 completed Not Available Not Available Not Available meloxicam 15 mg tablet TAKE 1 TABLET BY MOUTH EVERY DAY 2024 active Not Available Not Available Not Avai lable amoxicillin 500 mg tablet 1 TABLET 3 TIMES A DAY 11/05 completed Not Available Not Available Not Available trazodone 100 mg tablet TAKE 2 TABLETS BY MOUTH EVERY NIGHT AT BEDTIME active Not Available Not Available No t Available baclofen 10 mg tablet TAKE 1 TABLET BY MOUTH ONCE OR TWICE DAILY NEEDED active Not Available Not Available No t Available hydrochloro thiazide 12.5 mg capsule TAKE 1 CAPSULE BY MOUTH EVERY DAY active Not Available Not Available No t Available gabapentin 300 mg capsule TAKE 1 CAPSULE BY MOUTH TWICE A DAY active Not Available Not Available No t Available ergocalcife rol (vitamin D2) 1,250 mcg (50,000 unit) capsule TAKE 1 CAPSULE EVERY WEEK BY ORAL ROUTE. active Not Available Not Available No t Available methylpredn isolone 4 mg tablets in a dose pack TAKE 6 TABLETS ON DAY 1 DIRECTED ON PACKAGE AND DECREASE BY 1 TAB EACH DAY FOR A TOTAL OF 6 DAYS 11/05 completed Not Available Not Available Not Available hydroxyzine HCl 10 mg tablet TAKE 1 TABLET BY MOUTH TWICE A DAY NEEDED FOR 30 DAYS active Not Available Not Available No t Available amoxicillin 875 mg-potassiu m clavulanate 125 mg tablet TAKE 1 TABLET BY MOUTH EVERY 12 HOURS FOR 7 DAYS 11/05 completed Not Available Not Available Not Available aripiprazol e 5 mg tablet TAKE 1 TABLET BY MOUTH EVERYDAY AT BEDTIME active Not Available Not Available No t Available duloxetine 60 mg capsule,del ayed release TAKE 2 CAPSULES BY MOUTH ONCE DAILY FOR 90 DAYS active Not Available Not Available No t Available pregabalin 75 mg capsule TAKE 1 CAPSULE BY MOUTH ONCE PER DAY FOR 3-4 DAYS THEN INCREASE TO TWICE PER DAY 11/05 completed Not Available Not Available Not Available azelastine 137 mcg-flutica sone 50 mcg/spray nasal spray SPRAY 2 SPRAYS INTRANASA LLY DAILY active Not Available Not Available No t Available Jencycla 0.35 mg tablet TAKE 1 TABLET BY MOUTH EVERY DAY active Not Available Not Available No t Available Vitals Date Recorded Body height Body mass index (BMI) Body weight Provider Name and Address Organization Details Last Updated DateTime 11/05/2024 177.8 cm 50.2 kg/m2 392106.33 ana Johnson, EMMANUELLE L [place] [facility] [employer] [facility] 11/05/2024 14:57:37 Date Recorded Body height Body mass index (BMI) Body weight Pain severity - 0-10 verbal numeric rating [Score] - Reported Provider Name and Address Organization Details Last Updated DateTime 12/28/2024 177.8 cm 50.2 kg/m2 075835.33 g 1 Bijal MAXIME [facility] [place] [facility] [place] [employer] [facility] 12/28/2024 09:24:57 Social History None recorded. Functional Status Question Answer Note LastModified by Organization D etails LastModified Time What is your level of alcohol consumption? None [email or web address] Information not available 11/05/2024 Mental Status None recorded. Family History Relationship Description Onset Age of this Age Resolved Age Notes LastModified by Organization Details LastModified Time Unspecified Relation Hypertensive disorder [email or web address] Not available 10/14 15:02:28 Unspecified Relation Depressive disorder [email or web address] Not available 10/14 15:02:48 Medical History Condition Response ARTHRITIS Y HYPERTENSION Y Gynecological HistoryNo gynecological history recorded. Obstetrics History GPAL:G 0 P 0 0 0 0 Past Encounters Encounter ID Performer Location Encounter Start Date Encounter Closed Date Diagnosis/Indication Diagnosis SNOMED-CT Code Diagnosis ICD10 Code Diagnosis IMO Codes Diagnosis Note [id number] gO Avitia MD [facility] [place] [address] [place] [address] 11/05/2024 14:27:09 11/05/2024 15:33:55 Pain of right knee joint [id number] 55509 M25.561 Bilateral osteoarthritis of knees 1614756810 76303 M17.0 [id number] Og Avitia MD [facility] [place] [address] [place] [address] 12/28/2024 09:21:01 12/28/2024 09:32:27 Pain of right knee joint 3188410590 73210 M25.561 Health Concerns Section Related Observation LastModified by Organization Detai ls LastModified Time None Recorded Concern Status LastModified by Organization Details LastModified Time None Recorded Advance Directives Directive None Recorded Payers Insurance Date Sequence Insurance Name Policy Number Policy Warren Covered Member ID Warren Member ID Guarantor Name 01/01/2025 1 [facility] [id number] Omari Alejandra Vinodelar [id number] Babita Bryant OBGyn Episode No OBEpisode recorded.
--- OUTSIDE RECORDS SUMMARY | 2025-09-07 18:01 | XMS_ITS | Data Portability ---
Author Organization [facility] [place] Address [address] [place] [address] Assessment Encounter Date Assessment Date Assessment LastModified by Organization Details LastModified Time 08/16/2023 08/16/2023 Annual gynecological exam performed. Patient will come back in a year unless there are new symptoms. Not available 08/16/2023 17:01:59 10/31/2024 10/31/2024 Annual gynecological exam performed. Patient will come back in a year unless there are new symptoms. [email or web address] Not available 10/31/2024 15:20:11 Plan of Treatment Reminders Order Date Submit Date Provider Last Modified By Organization Details Last Modified Time Details Appointments None recorded. Lab hormone panel, serum or plasma 2024 025 [facility] (Lab), [address] [facility], [place], [address], 5 23:59:58 testosteron e free/testos terone total, ratio, serum 2024 025 [facility] (Lab), [address] [facility], [place], [address], 5 23:59:59 ca 125, serum 2022 023 [facility] (Lab), [address] [place], [address], 3 05:38:07 Referral None recorded. Procedures None recorded. Surgeries None recorded. Imaging MAMMO, screening, digital, bilateral 2024 025 [email or web address] [facility] (Radiology), [address] [facility] , [place], [address], 5 11:23:30 MAMMO, screening, bilateral [email or web address] [facility], [address], [place], [address], 3 16:03:04 US, transvagina l 2022 023 [email or web address] [place], [facility] [address], [address], [place], [address], 3 18:51:46 Medication Orders norethindro ne (contracept farhad) 0.35 mg tablet 2024 025 [facility] [address], [address], 5 16:02:21 norethindro ne (contracept farhad) 0.35 mg tablet 2022 023 MONIQUE Not available 3 17:34:59 Patient TargetsNo targets recorded. Patient InstructionsNo instructions recorded. Reason for Referral None Reported. Results Created Date Observation Date Name Description Value Unit Range Abnormal Flag Note LastModifiedBy Organization Detail LastModifiedTime 11/04/1911/04/2022 CA 125 Ca 125 14.0 units /mL 0.0-35 .0 This assay was perfo rmed using [employer] Corpo ratio n reage nts and test kits. Value s obtai maxwell with other assay metho ds or kits canno t be used inter cunningham eably . Not Available [facility] (Lab) [address], [place], [address], 11/05/2022 05:38:07 08/17/20 23 08/17/2023 IMAGE GUIDE D PAP AND HPV REGAR DLESS image guided Pap, HPV regardless of Pap result SEE RESULT S BELOW CASE REPOR T: Cytol ogy Gynec ologi arlene Repor t Case: [id number] Autho caremn ana Provi margarita: Sergei Yan Colle cted: 08/17 0940 PLANNING OFFICIAL Order ing Locat ion: [place] Patho logrodney Recei sterling: 08/18 0656 First Scree n: Arturo rojo ak, Sivil ay, CT Rescr een: Melodie Carver Speci men: Mayi andrews Pap - Image d, Cervi x STATE MENT OF ADEQU ACY: Satis facto ry for evalu ation Trans forma tion zone compo nent absen t The absen ce of an endoc ervic al compo nent was confi rmed by an addit georgina martinez. FINAL DIAGN OSIS: Negat farhad for Intra epith elial Lesio n or Abdirizak geiger (NIL) . Elect martin taylor corina d by Melodie Carver on 2022 at 8:19 PM ----- ----- ----- ----- ----- ----- ----- ----- ----- ----- ----- ----- ----- ----- ----- ----- ----- ---- HPV RESUL TS: HPV mRNA E6/E7 : No HPV mRNA Detec tamia NOTE: This high risk HPV mRNA assay detec ts fourt een high- risk HPV types (16, 18, 31, 33, 35, 39, 45, 51, 52, 56, 58, 59, 66, 68) witho ut diffe renti ation . COMME NT: This speci men was revie wed by a Cytot echno logis t and/o r Patho logis t (as indic ated in this repor t) after evalu ation using the Thinp rep Imagi ng Syste m. CLINI ARLENE INFOR MATIO N: Menst rual Statu s: LMP (if appli cable ): Clini arlene Histo ry/Pr eviou s Pap: Type of Neopl elvira (if appli cable ): Signi fican t Clini arlene Findi ngs: Other Histo ry: Hormo sharlene (if appli cable ): PAP EDUCA ANTONIO L NOTE: The Pap Test is a scree darryl test with an inher ent false negat farhad rate. Liqui d-bas ed sampl ing may decre ase, but will not elimi stephanie, false negat farhad resul ts. A negat farhad resul t does not precl ude the prese nce and/o r devel opmen t of disea se, since the prese nce of abnor mal cells in the sampl e depen ds on the locat ion of the lesio n and sampl ing techn ique. Edie nued regul ar scree darryl is the best metho d of cance r preve ntion . If repor tamia cytol ogic findi ng do not corre late with physi arlene and/o r histo rical findi ngs, furth er inves tigat ion is recom meghan d, as clini chioma warra nted. Not Available [facility] (Lab) [address] [facility], [place], [address], 08/19/2023 21:22:43 10/31/19 25 10/31/2024 FSH, LH, ESTRA DIOL estradiol 213.0 pg/mL This assay was perfo rmed using [employer] Corpo ratio n reage nts and test kits. Value s obtai maxwell with other assay metho ds or kits canno t be used inter cunningham eably . Femal e Estra diol Range s: Folli cular phase 12.4- 233 pg/mL Ovula tion phase 41.0- 398 pg/mL Lutea l phase 22.3- 341 pg/mL Postm enopa usal <5-13 8 pg/mL Healt hy Pregn ant Women 1st Trime ster 154-3 243 pg/mL 2nd Trime ster 1561- 86198 pg/mL 3rd Trime ster 8525- >3000 0 pg/mL Not Available [facility] (Lab) [address] [facility], [place], [address], 11/04/2024 23:59:58 10/31/19 25 10/31/2024 FSH, LH, ESTRA DIOL FSH 11.9 mIU/m L This assay was perfo rmed using [employer] Corpo ratio n reage nts and test kits. Value s obtai maxwell with other assay metho ds or kits canno t be used [facility] . Femal es Folli cular : 3.5-1 2.5 mIU/m L Ovula tion: 4.7-2 1.5 mIU/m L Lutea l: 1.7-7 .7 mIU/m L Postm enopa use: 25.8- 134.8 mIU/m L Not Available [facility] (Lab) [address] [facility], [place], [address], 11/04/2024 23:59:58 10/31/19 25 10/31/2024 FSH, LH, ESTRA DIOL LH 24.4 mIU/m L This assay was perfo rmed using [employer] Corpo ratio n reage nts and test kits. Value s obtai maxwell with other assay metho ds or kits canno t be used [facility] . Femal es Mid-F ollic ular: 2.4-1 2.6 mIU/m L Mid-C ycle: 14.0- 95.6 mIU/m L Mid-L uteal : 1.0-1 1.4 mIU/m L Postm enopa use: 7.7-5 8.5 mIU/m L Not Available [facility] (Lab) [address] [facility], [place], [address], 11/04/2024 23:59:58 10/31/19 25 10/31/2024 TESTO STERO NE, FREE( DIALY SIS) AND TOTAL (LC/M S/MS) testosterone , total 27 NG/dL 2-45 For addit ional pilarr kavita woody e refer to http: //carter watters.que stdia gnost ics.c om/fa q/ Total Testo stero neLCM SMSFA Q165 (This link is being provi ded for infor matio nal/ educa antonio l purpo ses only. ) This test was devel oped and its sophia tical perfo rmanc e mundo cteri stics have been deter mined by [employer] [facility] [place]. It has not been clear ed or appro sterling by the U.S. Food and Drug Admin istra tion. This assay has been valid ated pursu ant to the CLIA regul ation s and is used for clini arlene purpo ses. Not Available [facility] (Lab) [address] [facility], [place], [address], 11/04/2024 23:59:59 10/31/19 25 10/31/2024 TESTO STERO NE, FREE( DIALY SIS) AND TOTAL (LC/M S/MS) testosterone , free 2.3 pg/mL 0.1-6. 4 This test was devel oped and its sophia tical perfo rmanc e mundo cteri stics have been deter mined by [employer] [facility] [place]. It has not been clear ed or appro sterling by the U.S. Food and Drug Admin istra tion. This assay has been valid ated pursu ant to the CLIA regul ation s and is used for clini arlene purpo ses. Perfo rming Organ izati on Infor emilie n: Site ID: AMD Name: [facility] bianca reid Dimas Avisena [facility] Addre ss: [id number] [place], [place] Direc tor: Indira Temple MD PhD Not Available [facility] (Lab) [address] [facility], [place], [address], 11/04/2024 23:59:59 11/21/19 25 11/20/2024 CBC W/DIF F WBC 9.8 10'3/ uL 3.5-10 .5 Not Available [facility] (Lab) [address] [facility], [place], [address], 11/21/2024 04:22:18 11/21/19 25 11/20/2024 CBC W/DIF F RBC 4.40 10'6/ uL (based on docume nted legal sex) 3.80-5 .20 Not Available [facility] (Lab) [address] , [place], [address], 11/21/2024 04:22:18 11/21/19 25 11/20/2024 CBC W/DIF F HGB 11.4 g/dL (based on docume nted legal sex) 11.6-1 5.4 low Not Available [facility] (Lab) [address], [place], [address], 11/21/2024 04:22:18 11/21/19 25 11/20/2024 CBC W/DIF F HCT 37.5 % (based on docume nted legal sex) 34.0-4 5.0 Not Available [facility] (Lab) [address], [place], [address], 11/21/2024 04:22:18 11/21/19 25 11/20/2024 CBC W/DIF F MCV 85.2 fL 80.0-9 9.0 Not Available [facility] (Lab) [address] [facility], [place], [address], 11/21/2024 04:22:18 11/21/19 25 11/20/2024 CBC W/DIF F MCH 25.9 pg 27.0-3 4.0 low Not Available [facility] (Lab) [address], [place], [address], 11/21/2024 04:22:18 11/21/19 25 11/20/2024 CBC W/DIF F MCHC 30.4 g/dL 32.0-3 5.5 low Not Available [facility] (Lab) [address] [facility], [place], [address], 11/21/2024 04:22:18 11/21/19 25 11/20/2024 CBC W/DIF F RDW 15.5 % 11.0-1 5.0 high Not Available [facility] (Lab) [address] [facility], [place], [address], 11/21/2024 04:22:18 11/21/19 25 11/20/2024 CBC W/DIF F plt 400 10'3/ uL 150-40 0 Not Available [facility] (Lab) [address] [facility], [place], [address], 11/21/2024 04:22:18 11/21/19 25 11/20/2024 CBC W/DIF F MPV 10.8 fL 8.8-12 .1 Not Available [facility] (Lab) [address] [facility], [place], [address], 11/21/2024 04:22:18 11/21/19 25 11/20/2024 CBC W/DIF F neutrophils 66.5 % 34.0-7 3.0 Not Available [facility] (Lab) [address] [facility], [place], [address], 11/21/2024 04:22:18 11/21/19 25 11/20/2024 CBC W/DIF F lymphocytes 23.4 % 15.0-5 0.0 Not Available [facility] (Lab) [address] [facility], [place], [address], 11/21/2024 04:22:18 11/21/19 25 11/20/2024 CBC W/DIF F monocytes 6.8 % 1.0-15 .0 Not Available [facility] (Lab) [address] [facility], [place], [address], 11/21/2024 04:22:18 11/21/19 25 11/20/2024 CBC W/DIF F eosinophils 2.4 % 0.0-8. 0 Not Available [facility] (Lab) [address] [place], [address], 11/21/2024 04:22:18 11/21/19 25 11/20/2024 CBC W/DIF F basophils 0.7 % 0.0-2. 0 Not Available [facility] (Lab) [address] [facility], [place], [address], 11/21/2024 04:22:18 11/21/19 25 11/20/2024 CBC W/DIF F immature granulocytes 0.2 % no define d refere nce range Immat ure Granu locyt es (IG) repre sents autom ated enume ratio n of Metam yeloc ytes, Myelo cytes and Promy elocy brittnee when IG is < 5%. Blast s are not inclu ded in IG and repor tamia separ ately if prese nt. Not Available [facility] (Lab) [address] [facility], [place], [address], 11/21/2024 04:22:18 11/21/19 25 11/20/2024 CBC W/DIF F absolute neutrophils 6.5 10'3/ uL 1.5-8. 0 Not Available [facility] (Lab) [address] [facility], [place], [address], 11/21/2024 04:22:18 11/21/19 25 11/20/2024 CBC W/DIF F absolute lymphocytes 2.3 10'3/ uL 1.0-4. 0 Not Available [facility] (Lab) [address] [facility], [place], [address], 11/21/2024 04:22:18 11/21/19 25 11/20/2024 CBC W/DIF F absolute monocytes 0.7 10'3/ uL 0.2-1. 0 Not Available [facility] (Lab) [address] [facility], [place], [address], 11/21/2024 04:22:18 11/21/19 25 11/20/2024 CBC W/DIF F absolute eosinophils 0.2 10'3/ uL 0.0-0. 6 Not Available [facility] (Lab) [address] [facility], [place], [address], 11/21/2024 04:22:18 11/21/19 25 11/20/2024 CBC W/DIF F absolute basophils 0.1 10'3/ uL 0.0-0. 3 Not Available [facility] (Lab) [address] [facility], [place], [address], 11/21/2024 04:22:18 11/21/19 25 11/20/2024 CBC W/DIF F absolute immature granulocytes 0.0 10'3/ uL 0.00-0 .10 Refer ence range s for nonbi nary/ inter sex or unspe cifie d gende r patie nts have not been estab lishe d. Pleas e refer to the [place] [facility] table for range s estab lishe d for cisge nder patie nts and evalu ate in the clini arlene ana xt of the indiv idual patie nt: https ://martín plaza book. nm.or g/gen derx Not Available [facility] (Lab) [address] [facility], [place], [address], 11/21/2024 04:22:18 11/21/19 25 11/20/2024 CMP(C OMPRE HENSI VE METAB OLIC PANEL ) sodium 138 mmol/ L 133-14 6 Not Available [facility] (Lab) [address] [place], [address], 11/21/2024 04:22:19 11/21/19 25 11/20/2024 CMP(C OMPRE HENSI VE METAB OLIC PANEL ) potassium 3.8 mmol/ L 3.5-5. 1 Not Available [facility] (Lab) [address] [place], [address], 11/21/2024 04:22:19 11/21/19 25 11/20/2024 CMP(C OMPRE HENSI VE METAB OLIC PANEL ) chloride 102 mmol/ L 98-107 Not Available [facility] (Lab) [address] [facility], [place], [address], 11/21/2024 04:22:19 11/21/19 25 11/20/2024 CMP(C OMPRE HENSI VE METAB OLIC PANEL ) carbon dioxide 24 mmol/ L 21-31 Not Available [facility] (Lab) [address] [facility], [place], [address], 11/21/2024 04:22:19 11/21/19 25 11/20/2024 CMP(C OMPRE HENSI VE METAB OLIC PANEL ) anion gap 12 mmol/ L 4-13 Not Available [facility] (Lab) [address] [facility], [place], [address], 11/21/2024 04:22:19 11/21/19 25 11/20/2024 CMP(C OMPRE HENSI VE METAB OLIC PANEL ) blood urea nitrogen 9 mg/dL 7-25 Not Available [facility] (Lab) [address] [facility], [place], [address], 11/21/2024 04:22:19 11/21/19 25 11/20/2024 CMP(C OMPRE HENSI VE METAB OLIC PANEL ) creatinine 0.70 mg/dL 0.60-1 .30 Not Available [facility] (Lab) [address] [facility], [place], [address], 11/21/2024 04:22:19 11/21/19 25 11/20/2024 CMP(C OMPRE HENSI VE METAB OLIC PANEL ) egfrcr (CKD-epi 2020) >90 mL/mi n/1.7 3_m2 >=60 Not Available [facility] (Lab) [address] [facility], [place], [address], 11/21/2024 04:22:19 11/21/19 25 11/20/2024 CMP(C OMPRE HENSI VE METAB OLIC PANEL ) calcium 9.1 mg/dL 8.3-10 .5 Not Available [facility] (Lab) [address] [facility], [place], [address], 11/21/2024 04:22:19 11/21/19 25 11/20/2024 CMP(C OMPRE HENSI VE METAB OLIC PANEL ) glucose 80 mg/dL 70-100 Not Available [facility] (Lab) [address] [facility], [place], [address], 11/21/2024 04:22:19 11/21/19 25 11/20/2024 CMP(C OMPRE HENSI VE METAB OLIC PANEL ) protein, total 6.8 g/dL 6.4-8. 3 Not Available [facility] (Lab) [address] [facility], [place], [address], 11/21/2024 04:22:19 11/21/19 25 11/20/2024 CMP(C OMPRE HENSI VE METAB OLIC PANEL ) albumin 4.2 g/dL 3.5-5. 0 Not Available [facility] (Lab) [address] [facility], [place], [address], 11/21/2024 04:22:19 11/21/19 25 11/20/2024 CMP(C OMPRE HENSI VE METAB OLIC PANEL ) ALT 12 units /L 9-43 Not Available [facility] (Lab) [address] [facility], [place], [address], 11/21/2024 04:22:19 11/21/19 25 11/20/2024 CMP(C OMPRE HENSI VE METAB OLIC PANEL ) alkaline phosphatase 77 units /L 34-104 Not Available [facility] (Lab) [address] [place], [address], 11/21/2024 04:22:19 11/21/19 25 11/20/2024 CMP(C OMPRE HENSI VE METAB OLIC PANEL ) AST 14 units /L 13-39 Not Available [facility] (Lab) [address] [place], [address], 11/21/2024 04:22:19 11/21/19 25 11/20/2024 CMP(C OMPRE HENSI VE METAB OLIC PANEL ) bilirubin, total 0.4 mg/dL 0.2-1. 2 Not Available [facility] (Lab) [address] [place], [address], 11/21/2024 04:22:19 11/21/19 25 11/20/2024 TSH, REFLE X FREE T4 TSH 2.86 uIU/m L 0.30-5 .33 Not Available [facility] (Lab) [address] [facility], [place], [address], 11/21/2024 04:22:20 11/21/19 25 11/20/2024 VITAM IN B12 vitamin B12 447 pg/mL 180-91 4 Esperanza l Range : 180-9 14 pg/mL . Indet ermin ate Range : 145-1 80 pg/mL . Defic ient Range : <=145 pg/mL . Not Available [facility] (Lab) [address] [facility], [place], [address], 11/21/2024 04:22:20 11/21/19 25 11/20/2024 VITAM IN D, 25-OH (TOTA L D2/D3 ) vitamin D, 25-hydroxy, total 16.5 NG/mL 30.0-1 00.0 low Sugge stive of Defic iency : <20 ng/mL Sugge stive of Insuf ficie ncy: 20-29 ng/mL Sugge stive of Suffi cienc y: 30-10 0 ng/mL Sugge stive of Toxic ity: >150 ng/mL Not Available [facility] (Lab) [address] [place], [address], 11/21/2024 04:22:21 02/28/20 25 02/27/2025 DHEA SULFA TE DHEA-sulfate 165 ug/dL Femal e Range s Age(y ) Range (ug/d L) 10-15 34-28 0 15-20 65-36 8 20-25 148-4 07 25-35 99-34 0 35-45 61-33 7 45-55 35-25 6 55-65 19-20 5 65-75 9-246 > 75 12-15 4 Not Available [facility] (Lab) [address] [place], [address], 03/07/2025 13:13:23 02/28/20 25 02/27/2025 ESTRA DIOL estradiol 241.0 pg/mL This assay was perfo rmed using [employer] Corpo ratio n reage nts and test kits. Value s obtai maxwell with other assay metho ds or kits canno t be used [facility] . Femal e Estra diol Range s: Folli cular phase 12.4- 233 pg/mL Ovula tion phase 41.0- 398 pg/mL Lutea l phase 22.3- 341 pg/mL Postm enopa usal <5-13 8 pg/mL Healt hy Pregn ant Women 1st Trime ster 154-3 243 pg/mL 2nd Trime ster 1561- 40329 pg/mL 3rd Trime ster 8525- >3000 0 pg/mL Not Available [facility] (Lab) [address] [facility], [place], [address], 03/07/2025 13:13:24 02/28/20 25 02/27/2025 PROLA CTIN prolactin, total 9.54 NG/mL 4.79-2 3.30 This assay was perfo rmed using [employer] Corpo ratio n reage nts and test kits. Value s obtai maxwell with other assay metho ds or kits canno t be used [facility] . Not Available [facility] (Lab) [address] [facility], [place], [address], 03/07/2025 13:13:24 02/28/20 25 02/27/2025 LH (LUTE NIZIN G HORMO NE) LH 16.4 mIU/m L This assay was perfo rmed using [employer] Corpo ratio n reage nts and test kits. Value s obtai maxwell with other assay metho ds or kits canno t be used [facility] . Femal es Mid-F ollic ular: 2.4-1 2.6 mIU/m L Mid-C ycle: 14.0- 95.6 mIU/m L Mid-L uteal : 1.0-1 1.4 mIU/m L Postm enopa use: 7.7-5 8.5 mIU/m L Not Available [facility] (Lab) [address] [facility], [place], [address], 03/07/2025 13:13:25 02/28/20 25 02/27/2025 FSH FSH 8.1 mIU/m L This assay was perfo rmed using [employer] Corpo ratio n reage nts and test kits. Value s obtai maxwell with other assay metho ds or kits canno t be used inter [facility] . Femal es Folli cular : 3.5-1 2.5 mIU/m L Ovula tion: 4.7-2 1.5 mIU/m L Lutea l: 1.7-7 .7 mIU/m L Postm enopa use: 25.8- 134.8 mIU/m L Not Available [facility] (Lab) [address] [facility], [place], [address], 03/07/2025 13:13:25 02/28/20 25 02/27/2025 TSH, REFLE X FREE T4 TSH 2.67 uIU/m L 0.30-5 .33 Not Available [facility] (Lab) [address] [facility], [place], [address], 03/07/2025 13:13:25 02/28/20 25 02/27/2025 HUMAN SEX HORMO NE JOSEPH NG GLOBU CATIA sex hormone binding globulin 60.5 nmole s/L 16.8-1 25.2 Not Available [facility] (Lab) [address] [facility], [place], [address], 03/07/2025 13:13:26 02/28/2002/27/2025 HEMOG LOBIN A1C hemoglobin A1C 5.2 % 4.0-5. 6 The Ameri can Diabe brittnee Assoc iatio n recom mends that a prima ry goal of thera mickey calle d be a HBA1C of < 7% and that physi cians luc d reeva luate the treat ment regim en in patie nts with HBA1C value s consi stent ly > 8%. <5.7% Esperanza l 5.7 - 6.4% Incre ased risk for diabe brittnee >=6.5 % Diagn ostic of diabe brittnee <7.0% Goal of thera py >8.0% Actio janene pierce sted Not Available [facility] (Lab) [address] [facility], [place], [address], 03/07/2025 13:13:26 02/28/2002/27/2025 TESTO STERO NE, FREE( DIALY SIS) AND TOTAL (LC/M S/MS) testosterone , total 34 NG/dL 2-45 For addit ional pilarr kavita woody e refer to http: //caretr watters.que stdia gnost ics.c om/fa q/ Total Testo stero neLCM SMSFA Q165 (This link is being provi ded for infodavy del rosario/ educa antonio l purpo ses only. ) This test was devel oped and its sophia tical perfo rmanc e mundo cteri stics have been deter mined by [facility] [employer] [facility], [place]. It has not been clear ed or appro sterling by the U.S. Food and Drug Admin istra tion. This assay has been valid ated pursu ant to the CLIA regul ation s and is used for clini arlene purpo ses. Not Available [facility] (Lab) [address] [facility], [place], [address], 03/07/2025 13:13:27 02/28/2002/27/2025 TESTO STERO NE, FREE( DIALY SIS) AND TOTAL (LC/M S/MS) testosterone , free 2.4 pg/mL 0.1-6. 4 This test was devel oped and its sophia tical perfo rmanc e mundo cteri stics have been deter mined by [facility] [employer] [place], [place]. It has not been clear ed or appro sterling by the U.S. Food and Drug Admin istra tion. This assay has been valid ated pursu ant to the CLIA regul ation s and is used for clini arlene purpo ses. Perfo rming Organ izati on Infor matio n: Site ID: AMD Name: [facility] [employer] [facility] reid Dimas olson Addre ss: [id number] [place], [place] Direc tor: Indira Temple MD PhD Not Available [facility] (Lab) [address] [place], [address], 03/07/2025 13:13:27 02/28/20 25 02/27/2025 17-OH PROGE STERO NE 17-hydroxypr ogesterone, lc/MS/MS 137 NG/dL Adult Femal e Refer ence Range s for 17-Hy droxy proge stero ne: Pre-M enopa usal Mid Folli cular : 23-10 2 ng/dL Pre-M enopa usal Surge : 67-34 9 ng/dL Pre-M enopa usal Mid Lutea l: 139-4 31 ng/dL Postm enopa usal Phase : < or = 45 ng/dL Pregn eder: First Trime ster: 78-45 7 ng/dL Secon d Trime ster: 90-35 7 ng/dL Third Trime ster: 144-5 78 ng/dL This test was devel oped and its sophia tical perfo rmanc e mundo cteri stics have been deter mined by [facility]. It has not been clear ed or appro sterling by the FDA. This assay has been valid ated pursu ant to the CLIA regul ation s and is used for clini arlene purpo ses. Perfo rming Organ izati on Infor matio n: Site ID: [id number] Name: [facility]/Rm koki C-S theresa swann , Addre ss: [id number] [place] [address] Direc tor: Yu scott MD,Ph D,MARA Not Available [facility] (Lab) [address] [place], [address], 03/07/2025 13:13:27 03/06/20 25 03/06/2025 VITAM IN D, 25-OH (TOTA L D2/D3 ) vitamin D, 25-hydroxy, total 30.6 NG/mL 30.0-1 00.0 Sugge stive of Defic iency : <20 ng/mL Sugge stive of Insuf ficie ncy: 20-29 ng/mL Sugge stive of Suffi cienc y: 30-10 0 ng/mL Sugge stive of Toxic ity: >150 ng/mL Not Available [facility] (Lab) [address], [place], [address], 03/07/2025 04:35:09 10/20/19 23 10/20/2022 [place], pelvi s No observ ation record ed. [email or web address] [place] [address], [place], [address], 10/20/2022 18:25:07 10/20/19 23 10/20/2022 US, trans vagin al No observ ation record ed. [email or web address] [place] [address], [place], [address], 10/20/2022 18:24:17 10/20/19 23 10/20/2022 US, pelvi s No observ ation record ed. [email or web address] [place] [address], [place], [address], 10/21/2022 11:48:05 01/06/20 23 01/05/2023 US, trans vagin al No observ ation record ed. [email or web address] [place] [address], [place], [address], 01/05/2023 17:28:29 01/06/20 23 01/05/2023 US, trans vagin al No observ ation record ed. [email or web address] [place] [address], [place], [address], 01/05/2023 22:01:12 09/18/19 24 09/17/2023 MAMMO , scree darryl, bilat eral No observ ation record ed. [place] [facility] [address] [facility] , [place], [address], 09/19/2023 19:30:05 Result Notes None recorded. Problems Name Problem SNOMED Code Status Onset Date Resolution Date Notes Provider Name and Address Organization Details Recorded Time Abnormal uterine bleeding [id number] 100 Active 2018 Other specified abnormal uterine and vaginal bleeding; Recorded Elsewhere : No Locati on: [facility] So urce: EHR Chron ic: N Practic e ID: [id number] Bill able Time: 03:00:00 PM Not Available [facility] 0 18:56:45 Problem Notes None recorded. Procedures Surgical History Date Name Laterality Status Provider Name and Address Organization Details Recorded Time 5 Date of Last Mammogram completed [facility] 10/31/2024 15:27:49 3 Date of Last Pap Smear completed [facility] 10/31/2024 15:20:33 repair of hernia of anterior abdominal wall completed Reba Slade [facility] 08/16/2023 17:10:55 Imaging Results None recorded. Procedure Notes None recorded. Medical Equipment None Reported. Allergies No known drug allergies Medications Name Sig Start Date Stop Date Status Note LastModified by Organization Details LastModified Time losartan 50 mg tablet TAKE 1 TABLET BY MOUTH EVERY DAY active Not Available Not Available No t Available quetiapin e 25 mg tablet 08/25 completed Not Available Not Available Not Available cyclobenz aprine 10 mg tablet active Not Available Not Available No t Available amoxicill in 500 mg capsule TAKE 1 CAPSULE BY MOUTH FOUR TIMES A DAY UNTIL GONE 10/31 completed Not Available Not Available Not Available trazodone 50 mg tablet take 1 tablet by oral route 3 times every day after meals 08/25 completed Prescrib ed Elsewher e: Yes Loca tion: [facility] M odify By: risa Saldivar ncounter DateTime : 01/04/20 01:00:00 PM Not Available Not Available Not Available triamcino lone acetonide 0.5 % topical cream 08/25 completed Not Available Not Available Not Available cetirizin e 10 mg tablet 08/25 completed Not Available Not Available Not Available azithromy bolivar 250 mg tablet 08/25 completed Not Available Not Available Not Available ibuprofen 800 mg tablet TAKE 1 TABLET BY MOUTH EVERY 8 HOURS NEEDED FOR PAIN active Not Available Not Available No t Available hydrocodo ne 5 mg-acetam inophen 325 mg tablet TAKE 1 TABLET BY MOUTH EVERY 4 TO 6 HOURS NEEDED FOR PAIN active Not Available Not Available No t Available meloxicam 15 mg tablet TAKE 1 TABLET BY MOUTH EVERY DAY active Not Available Not Available No t Available sucralfat e 1 gram tablet 08/16 completed Not Available Not Available Not Available ibuprofen 200 mg capsule take 1 capsule by oral route every 6 hours as needed 08/25 completed Prescrib ed Elsewher e: Yes Loca tion: Deena saldivar [facility] odify By: [email or web address] Saldivar ncounter DateTime : 06/01/20 19 11:00:00 AM Not Available Not Available Not Available lisinopri l 20 mg tablet 08/16 completed Not Available Not Available Not Available prednison e 20 mg tablet 08/25 completed Not Available Not Available Not Available Prilosec 40 mg capsule,d elayed release take 1 capsule by oral route every day before a meal active Prescrib ed Elsewher e: Yes Loca tion: [facility] odify By: tigist Saldivar ncounter DateTime : 10/19/19 17 11:00:00 AM Not Available Not Available Not Available tramadol 50 mg tablet take 1 to 2 tablets by oral route every 6 hours as needed 08/16 completed Not Available Not Available Not Available amoxicill in 500 mg tablet 1 TABLET 3 TIMES A DAY 10/31 completed Not Available Not Available Not Available terbinafi ne HCl 250 mg tablet 08/25 completed Not Available Not Available Not Available ziprasido ne 20 mg capsule 08/16 completed Not Available Not Available Not Available trazodone 100 mg tablet TAKE 2 TABLETS BY MOUTH EVERY NIGHT AT BEDTIME active Not Available Not Available No t Available baclofen 10 mg tablet TAKE 1 TABLET BY MOUTH ONCE OR TWICE DAILY NEEDED active Not Available Not Available No t Available hydrocodo ne 7.5 mg-acetam inophen 325 mg tablet BY MOUTH EVERY 4 HOURS NEEDED FOR PAIN 08/16 completed Not Available Not Available Not Available dexametha sone 4 mg tablet TAKE 1 TABLET BY MOUTH WHEN FILLED THEN 1 TABLET BEFORE BED THEN 1 TABLET EVERY DAY FOR 3 DAYS 08/25 completed Not Available Not Available Not Available buspirone 10 mg tablet 08/25 completed Not Available Not Available Not Available hydrochlo rothiazid e 12.5 mg capsule TAKE 1 CAPSULE BY MOUTH EVERY DAY active Not Available Not Available No t Available gabapenti n 300 mg capsule TAKE 1 CAPSULE BY MOUTH EVERY DAY FOR 90 DAYS active Not Available Not Available No t Available hydroxyzi ne HCl 25 mg tablet 08/16 completed Not Available Not Available Not Available Levaquin 500 mg tablet take 1 tablet by oral route every 24 hours 10/19 completed Prescrib ed Elsewher e: No Locat ion: [facility] odify By: tigist mainer DateTime : 01/22/20 16 01:45:00 PM Not Available Not Available Not Available ziprasido ne 40 mg capsule 10/31 completed Not Available Not Available Not Available ergocalci ferol (vitamin D2) 1,250 mcg (50,000 unit) capsule TAKE 1 CAPSULE EVERY WEEK BY ORAL ROUTE. 2024 active Not Available Not Available Not Avai lable azelastin e 137 mcg (0.1 %) nasal spray 08/16 completed Not Available Not Available Not Available methylpre dnisolone 4 mg tablets in a dose pack TAKE 6 TABLETS ON DAY 1 DIRECTED ON PACKAGE AND DECREASE BY 1 TAB EACH DAY FOR A TOTAL OF 6 DAYS 10/31 completed Not Available Not Available Not Available Prozac 10 mg capsule take 2 capsule by oral route every day 10/19 completed Prescrib ed Elsewher e: Yes Loca tion: [facility] odify By: tigist gillespieunter DateTime : 01/22/20 16 01:45:00 PM Not Available Not Available Not Available losartan 50 mg-hydroc hlorothia zide 12.5 mg tablet 08/25 completed Not Available Not Available Not Available celecoxib 100 mg capsule 10/31 completed Not Available Not Available Not Available hydroxyzi ne HCl 10 mg tablet TAKE 1 TABLET BY MOUTH TWICE A DAY NEEDED FOR 30 DAYS active Not Available Not Available No t Available cefdinir 300 mg capsule 08/25 completed Not Available Not Available Not Available losartan 100 mg tablet 08/16 completed Not Available Not Available Not Available fluticaso ne propionat e 50 mcg/actua tion nasal spray,kemi pension 08/16 completed Not Available Not Available Not Available amoxicill in 875 mg-potass ium clavulana te 125 mg tablet TAKE 1 TABLET BY MOUTH EVERY 12 HOURS FOR 7 DAYS 10/31 completed Not Available Not Available Not Available buspirone 15 mg tablet 08/16 completed Not Available Not Available Not Available neomycin- polymyxin -hydrocor t 3.5 mg-10,000 unit/mL-1 % ear drops,kemi p 08/25 completed Not Available Not Available Not Available aripipraz ole 5 mg tablet TAKE 1 TABLET BY MOUTH EVERYDAY AT BEDTIME active Not Available Not Available No t Available hydrocodo ne 5 mg-ibupro fen 200 mg tablet take 1 tablet by oral route every 6 hours as needed not to exceed 5 tablets in 24hrs 07/31 completed [facility] Locat ion: [facility] odify By: tawny orlando DateTime : 07/24/20 09:53:13 AM Not Available Not Available Not Available duloxetin e 30 mg capsule,d elayed release take 1 capsule by oral route 3 times every day 08/16 completed Not Available Not Available Not Available duloxetin e 60 mg capsule,d elayed release TAKE 2 CAPSULES BY MOUTH ONCE A DAY active Not Available Not Available No t Available pregabali n 75 mg capsule TAKE 1 CAPSULE BY MOUTH ONCE PER DAY FOR 3-4 DAYS THEN INCREASE TO TWICE PER DAY 10/31 completed Not Available Not Available Not Available hydrochlo rothiazid e 08/25 completed Not Available Not Available Not Available Prilosec 08/25 completed Not Available Not Available Not Available trazodone 08/25 completed Not Available Not Available Not Available Aviane 08/25 completed Not Available Not Available Not Available Cymbalta 08/25 completed Not Available Not Available Not Available quetiapin e 50 mg tablet 08/25 completed Not Available Not Available Not Available Zyrtec 10 mg capsule 10/31 completed Prescrib ed Elsewher e: Yes Loca tion: [facility] odify By: tigist Saldivar ncounter DateTime : 01/22/20 01:45:00 PM Not Available Not Available Not Available Lo Loestrin Fe 1 mg-10 mcg (24)/10 mcg (2) tablet take 1 tablet by oral route every day 08/25 completed Prescrib ed Elsewher e: No Locat ion: [facility] odify By: [email or web address] Encount er DateTime : 08/20/20 11:00:00 AM Not Available Not Available Not Available azelastin e 137 mcg-fluti casone 50 mcg/spray nasal spray SPRAY 2 SPRAYS INTRANAS ALLY DAILY active Not Available Not Available No t Available Falmina (28) 0.1 mg-20 mcg tablet TAKE ONE TABLET BY MOUTH EVERY DAY 09/02 completed Not Available Not Available Not Available Jencycla 0.35 mg tablet TAKE 1 TABLET BY MOUTH EVERY DAY active Not Available Not Available No t Available Rexulti 1 mg tablet TAKE 1 TABLET BY MOUTH EVERY DAY IN THE MORNING 10/31 completed Not Available Not Available Not Available Vraylar 1.5 mg capsule 08/16 completed Not Available Not Available Not Available Linzess 72 mcg capsule TAKE 1 CAPSULE BY MOUTH EVERY DAY 10/31 completed Not Available Not Available Not Available Flucelvax Quad (PF) 60 mcg (15 mcg x 4)/0.5 mL IM syringe 08/25 completed Not Available Not Available Not Available Vitals Date Recorded Body height Body mass index (BMI) Body weight Systolic And Diastolic Provider Name and Address Organization Details Last Updated DateTime 10/31/2024 177.8 cm 51.1 kg/m2 126378.6 g 145/70 mm[Hg] Paula Penaloza [facility] 10/31/2024 15:27:03 Date Recorded Body height Body mass index (BMI) Body weight Systolic And Diastolic Provider Name and Address Organization Details Last Updated DateTime 11/04/2022 177.8 cm 46.3 kg/m2 259621.34 g 136/79 mm[Hg] [facility] 11/04/2022 16:54:54 Date Recorded Body height Body mass index (BMI) Body weight Systolic And Diastolic Provider Name and Address Organization Details Last Updated DateTime 01/17/2023 177.8 cm 46.3 kg/m2 452286.34 g 111/68 mm[Hg] [facility] 01/17/2023 17:06:39 Date Recorded Body height Body mass index (BMI) Body weight Systolic And Diastolic Provider Name and Address Organization Details Last Updated DateTime 08/16/2023 177.8 cm 46.9 kg/m2 364334.7 g 136/78 mm[Hg] Reba Slade [facility] 08/16/2023 17:04:01 Social History Question Answer Notes LastModified by Organizat ion Details LastModified Time Tobacco Smoking Status Never Smoker Jennifer vo, [facility] 08/25/2022 16:42:57 Are You Blind Or Do You Have Difficulty Seeing? No Information n ot available 08/25/2022 In The 14 Days Before Symptom Onset, Have You Had Close Contact With A Laboratory-confirm ed COVID-19 While That Case Was Ill? No Information n ot available 08/16/2023 In The 14 Days Before Symptom Onset, Have You Had Close Contact With A Person Who Is Under Investigation For COVID-19 While That Person Was Ill? No Information not available 08/16/2023 Have You Been To An Area Known To Be High Risk For COVID-19? No Information not available 08/16/2023 Are You Deaf Or Do You Have Serious Difficulty Hearing? No Information not available 08/25/2022 What Type Of Diet Are You Following? REGULAR Information n ot available 08/25/2022 Do You Have Difficulty Walking Or Climbing Stairs? No Information not available 08/25/2022 Sex: Unknown Functional Status Question Answer Note LastModified by Organizat ion Details LastModified Time What is your level of alcohol consumption? Occasional Information not available 08/25/2022 Are you able to walk independently without assistance or assistive devices? YESWOREST Information not available 08/25/2022 Are you able to care for yourself independently? Yes Information not available 08/25/2022 Do you have difficulty dressing, bathing, grooming, or toileting? No Information not available 08/25/2022 What is your exercise level? None Information not available 08/25/2022 Mental Status None recorded. Family History Relationship Description Onset Age of this Age Resolved Age Notes LastModified by Organization Details LastModified Time Father Essential hypertension [email or web address] Not available 1 10/26/2021 16:42:41 Notes:Father: Hypertension Medical History Condition Response Allergies (Food, seasonal, environmental ) N Other N Breast Cancer N Drug/Latex Allergies/Reactions N Blood Transfusion N Dermatologic Disorders N Lung Disease N Defects or Inherited Disease N Breast Problem N Gestational Diabetes N Hematologic disorders N Anesthesia Complications N History of STI N Deep Vein Thrombosis N Polycystic ovary syndrome N Anxiety Disorder Y Autoimmune disease N Arthritis N Infertility N Polyps N Acid Reflux (GERD) N History of abnormal pap N Cancer N Stroke N Varicosities N Neurologic/Epilepsy N Endometriosis N High Cholesterol Y Headaches N Fibromyalgia N Kidney Disease N Heart Problems N Kidney or Bladder Problems N Thyroid Problems N GI Problems N Eating Disorder N Anemia N Art (IVF or FET) N Psychiatric Illness N Ovarian Cancer N Diabetes N Pulmonary (TB, Asthma) N Hepatitis/Liver Disease N No Past Medical History N Eczema N Urinary Tract Infection N Abuse/Domestic Violence N Asthma N Trauma/Violence N Depression/ depression Y Heart Disease N Pre-Eclampsia N Hypertension Y Osteoporosis N Thrombophilias N Gynecological History Statement/Question Response Abnormal Pap N Flow Moderate Date of Last Mammogram 09/12/2024 Date of LMP 09/12/2024 Was last menstrual period normal N STIs/STDs N HPV Vaccine N Duration of Flow (days) 5 Current Control Method BCPs Are cycles usually normal Y Date of Last Colonoscopy Frequency of Cycle (Q days) 30 Sexually Active? Y Menses Monthly Y Age of first menstrual cycle 10 Date of Last Pap Smear 08/17/2023 Sexual Problems? N LMP Approximate Obstetrics History GPAL:G 3 P 0 0 1 2 Type Value Spontaneous 1 Living 2 Total 3 Past Encounters Encounter ID Performer Location Encounter Start Date Encounter Closed Date Diagnosis/Indication Diagnosis SNOMED-CT Code Diagnosis ICD10 Code Diagnosis IMO Codes Diagnosis Note [id number] Loren Baron MD [place] [address] [address] 01/24/2020 13:51:11 01/24/2020 15:04:13 Gynecologic examination 36211127 Z01.419 We reviewed current pap guidelines and she agrees and is aware no pap done today. Pap normal 12/2018 and no h/o abnormal pap. Last MMG 11/2018, order given Surveillan ce of oral contraception 684746038 Z30.41 She is taking OCP for contracept ion. She tried progestin only and lower dose combinatio n OC but had ovarian cysts and very heavy cycles with that. She does have HTN which is well controlled on HCTZ, so she may continue current OC. She is planning to have repeat U/S in a few months to follow the ovarian cysts [id number] INDER Pineda [place] [address] [address] 08/25/2022 16:27:31 08/25/2022 18:12:06 Pain in pelvis 84517583 R10.2 Today we reviewed the various causes of pelvic pain and need for evaluation STI endocervic al testing sentUrine cx sentUPT (-) todayPelvi c u/s orderedDis cussed combined OCP in relation to controlled HTN, discussed risk. Recommende d progestin only method. She has tried POP and lower dose OCP in the past and had issues with recurrent ovarian cyst. Does not desire to switch, she is aware of the risk. RTC for pelvic u/s and u/s f/uED precaution s discussed (worsening pain/sympt oms, heavy vaginal bleeding, fevers, flu-like symptoms)E ncouraged increasing fiber, daily stool softener, miralax if needed Time spent in visit is a total of 30 mins with at least 50% of visit consisting of counseling and review of plan of care. Venereal d isease screening 388405077 Z11.3 Increased frequency of urination 735517160 R35.0 [id number] Emeterio Perez MD [place] [address] [address] 09/01/2022 17:45:14 09/01/2022 18:43:05 Pain in pelvis 64269482 R10.2 [id number] INDER Pineda [place] [address] [address] 09/02/2022 11:21:42 09/03/2022 12:42:57 Pain in pelvis 17319429 R10.2 Today we reviewed her pelvic u/s result - Mildly complex left ovarian cyst, 3.4cmPain is worsening, feeling right sided pelvic pain more often. She has tried ibuprofen with only mild improvemen t.Consulte d with Dr. Perez on patient case. She will f/u for MD consult on 09/08 to discuss management options / surgical options.Di scussed pain management options in the meantime. Consulted with Dr. Perez about pain management options, rx sent. Discussed R/B of medication , discussed risk of potential drug interactio ns and need to monitor for any negative SE.To notify the office / ED precaution s discussed - Worsening pain, fevers, N/V, flu-like symptoms, etcReviewe d risk of ovarian torsion and signs / symptoms Contracept ion care management [id number] Z30.9 Discussed again with patient that her current OCP is not recommende d/contrain dicated in patients with HTN. Discussed risk related to HTN in combinatio n with elevated BMI (cardiovas cular events, VTE risk, etc). Discussed again that I recommend against combined hormonal contracept ion given her medical hx and BMI.Review ed all progestin only methods (POP, DMPA, IUD). Patient agrees to start POP Discussed all control options in great detail. Pt would like to start POP. She is aware of the risks and benefits. She has contraindi cations to use of OCP or other estrogen containing hormonal therapy. . She is aware it is not effective for control the first month. She is also aware of the importance of taking at the same time every day. Time spent in visit is a total of 45 mins with at least 50% of visit consisting of counseling and review of plan of care. Complex cy st of left ovary [id number] N83.292 [id number] Emeterio Perez MD [place] [address] [address] 09/11/2022 11:28:51 09/15/2022 14:51:01 Anterior abdominal wall mass 066181376 R19.09 this patient is a 39-year-ol d female with a ovarian cyst and abdominal wall mass with pain. Her symptoms are very suggestive of an abdominal wall hernia of significan t size. This patient needs a general surgery consult and some imaging to diagnose the mass. We will obtain CT of the abdomen pelvis with contrast. Will follow-up on the results and contact the patient. She will follow-up here after a follow-up ultrasound on the ovarian cyst. Spent over 40 minutes with the patient. More than 50% was counseling . [id number] Emeterio Perez MD [place] [address] [address] 10/11/2022 16:43:26 10/11/2022 17:41:40 Abdominal mass 119142205 R19.00 47-year-ol d female presents for follow-up on abdominal wall mass and abdominal pain. She had a CT scan of her abdomen pelvis. There is no CT findings that correlate with the palpable right lower quadrant mass. She does have some continued pain and burning of the area and it radiates across the abdomen. We talked about her pelvic ultrasound and follow-up with a pelvic ultrasound which contains a mildly complex cyst. Would like to refer the patient to general surgery for the abdominal wall mass concerns. Spent over 20 minutes with the patient. More than 50% was counseling . We reviewed CT scan results and talked about the implicatio ns. [id number] MD [facility] [place] [address] [address] 10/20/2022 17:24:21 10/20/2022 18:29:41 Cyst of left ovary [id number] N83.292 [id number] Emeterio Perez MD [place] [address],[place] [address] 11/04/2022 16:28:42 11/08/2022 14:46:38 Cyst of ovary 52687663 N83.209 This patient is a 47-year-ol d female with large ovarian cyst of the right ovary. It is stable. Is unchanged after 6-8 weeks. We talked about the cyst in detail. We reviewed images together. We agreed to get a CA 125. We also agreed to observe this cyst. Does not require surgery at this time. She does not have any symptoms. We spent 20 minutes face-to-fa ce. More than 50% was counseling . [id number] Emeterio Perez MD [place] [address],[place] [address] 01/05/2023 16:21:22 01/05/2023 16:56:07 Cyst of left ovary [id number] 2599747 N83.292 N83.291 [id number] Emeterio Perez MD [place] [address],[place] [address] 01/17/2023 16:53:23 01/19/2023 13:26:53 Bilateral complex ovarian cyst [id number] 1021589 N83.291 this patient is a 47-year-ol d female with bilateral cystic ovaries. There were some worrisome features to the left ovary. there is a hyperechoi c lesion within the cyst that has blood flow. There is a septum. The right side is relatively benign looking. She has normal CA 125. We talked about these findings. We talked about the bilaterali ty in the complex nature of the left side. We agreed to obtain a consult from the [facility]cology Oncology group. We spent over 20 minutes face-to-fa ce. More than 50% was counseling . [id number] [facility] [address] [address] 08/16/2023 16:49:49 08/16/2023 17:41:40 Gynecologic examination 67287568 Z01.419 Suggested Calcium with Vitamin D 1200-1500m g daily. Patient advised to get an annual flu shot in the fall and she could obtain at [facility] or [facility] clinic. Also to obtain TDap vaccinatio n if you have not had one in the last 10 years. Recommend yearly mammograms . Encouraged monthly self breast exams. Encourage safe sexual practices, to use condoms and limit partners if not already in a monogamous relationsh ip. Engage in daily exercise of low impact aerobic exercise 45-60 minutes 4-5 times weekly. Avoid tobacco and illicit drugs as well as using moderation with alcohol intake less than 1-2 8 oz beverages daily. This lifestyle behavior pattern will lead to less health conditions and longer life span. If BMI greater than 25 weight watchers or dietary consult advised. All questions have been answered. Patient appears to understand informatio n, but if you have any questions please call or respond to this email.Pap/ hpv opts to sent STD Screen declined Genetic Screen discussed Colon Screen PCP Dexa Screen na Routine Labs PCP Contracept ion care management 430454953 Z30.9 Happy on POPRF sent x 1yr Screening mammography 24 684641 Z12.31 [id number] Emeterio Perez MD [place] [address] [address] 10/31/2024 15:17:02 10/31/2024 16:16:34 Gynecologic examination 98510711 Z01.419 Annual gynecologi arlene exam performed. Patient will come back in a year unless there are new symptoms. Suggest Calcium with Vitamin D if not eating in diet. Patient advised to get annual flu shot. Recommend yearly physicals and perform monthly breast exams. Genetic testing is available for patients with family history of cancer. Engage in safe sexual practices, use condoms. Encouraged to have daily exercise. Avoid tobacco and illicit drugs, moderation of alcohol. If BMI greater than 25 dietary consult advised. If you have any questions please call or email. mammogram- UTD; order given, pt to schedule colon cancer screening - UTD PCP - cologuard 2023 per pt WNL DEXA scan- n/a Pap smear- UTD (2022- WNL), will repeat in 2025 per [facility] guidelines laboratory evaluation - PCP STI testing - declined Screening mammography 24 [id number] Z12.31 Contracept ion care management [id number] Z30.9 Happy with BC pills. Risks/bene fits reviewed.R efills sent x one year. Menopausal symptom [id number] 002 N95.1 Discussed that hormone labs will not be completely accurate while on POPs. Patient verbalized understand ing and requests them. Reviewed self-help strategies (dietary changes/ex ercise/acc upuncture/ etc.), herbal and other OTC therapies, hormonal options as well as other medication s used to treat common menopausal symptoms. Patient desires to stay on norethindr one pills since they have been helping to suppress her ovarian cysts. Health Concerns Section Related Observation LastModified by Organization Detai ls LastModified Time None Recorded Concern Status LastModified by Organization Details LastModified Time None Recorded Advance Directives Directive None Recorded Payers Insurance Date Sequence Insurance Name Policy Number Policy Warren Covered Member ID Warren Member ID Guarantor Name 10/28/2024 1 [facility] [id number] [facility]yl [facility] 08/16/2022 2 [place] [facility] Babitacheryl Bryant [id number] Babitacheryl Bryant [facility] 08/23/2022 1 [facility] [id number] [facility]yl [facility] 01/24/2020 1 [facility] (MEDICAID HMO) [id number] Babita Bryant [id number] Babitacheryl Bryant K[facility]ar 08/16/2022 [facility] (MEDICAID HMO) [id number] Babita Bryant [id number] Babitacheryl Bryant Kinkelar 10/18/2024 1 [facility] [id number] [facility]itacheryl [facility] 03/25/2023 PAYMENT PLAN [facility] Notes Date Note Type Note Provider Name and Address Organization Details Recorded Time 3 text/html This patient is a 47-year-old female with large ovarian cyst of the right ovary. It is stable. Is unchanged after 6-8 weeks. We talked about the cyst in detail. We reviewed images together. We agreed to get a CA 125. We also agreed to observe this cyst. Does not require surgery at this time. She does not have any symptoms. We spent 20 minutes [id number]. More than 50% was counseling. Emeterio Perez MD [address], [place], [address], [facility] 11/05/2022 18:00:11 3 text/html this patient is a 47-year-old female with bilateral cystic ovaries. There were some worrisome features to the left ovary. there is a hyperechoic lesion within the cyst that has blood flow. There is a septum. The right side is relatively benign looking. She has normal CA 125. We talked about these findings. We talked about the bilaterality in the complex nature of the left side. We agreed to obtain a consult from the [facility]cology group. We spent over 20 minutes [id number]. More than 50% was counseling. Emeterio Perez MD [address], [place], [address], [facility] 01/17/2023 20:08:10 3 text/html Annual GYNReported by PatientGenitourinary symptomsFor menstrual cycle, patient reportsnormal menses. For urinary symptoms, patient reportsno hematuriaandno incontinence. For vulva, patient reportsno genital lesion. For vagina, patient reportsnormal vaginal discharge.Breast symptomsFor breast, patient reportsno breast pain,no breast lump, andno nipple discharge.ContraceptionFo r current contraception, patient reportssatisfied with current contraceptionandoral contraceptives.Endocrine symptomsFor sexual complaints, patient reportsno sexual complaints,no pain during intercourse, andnormal libido. For menopausal symptoms, patient reportsno menopausal symptomsandnormal vaginal lubrication.Psychological symptomsFor psychological symptoms, patient reportsno depression,no anxiety, andno pmdd.Preventative measuresFor preventive measures, patient reportsencourage self breast examination,encourage regular exercise,encourage no tobacco use,encourage regular mammograms starting age 40,followed with yearly pap smears, andneeds to schedule mammogram. Mireille Reza, MICHELLE- [address], [place], [address], [facility] 08/16/2023 17:39:54 5 text/html Annual GYNReported by PatientGenitourinary symptomsFor menstrual cycle, patient reportsperimenopausal(no periods on pop). For urinary symptoms, patient reportsno hematuriaandno incontinence. For vulva, patient reportsno genital lesion. For vagina, patient reportsnormal vaginal discharge.Breast symptomsFor breast, patient reportsno breast pain,no breast lump, andno nipple discharge.ContraceptionFo r current contraception, patient reportssatisfied with current contraceptionandoral contraceptives.Endocrine symptomsFor sexual complaints, patient reportsno sexual complaints,no pain during intercourse, andnormal libido. For menopausal symptoms, patient reportsno menopausal symptomsandnormal vaginal lubrication.Psychological symptomsFor psychological symptoms, patient reportsdepressionandanxie ty(sees psychiatry).Preventative measuresFor preventive measures, patient reportsencourage self breast examination,encourage regular exercise,encourage no tobacco use, andencourage regular mammograms starting age 40. Patient presents for annual well woman exam.Patient doing well on POPs to help control ovarian cysts. Patient saw [employer] [facility] in 2022 and no follow-up needed unless symptoms/pelvic pain worsen.Patient reports hot flashes when she is anxious. Hx of severe anxiety and depression managed by psychiatrist. Patient requests hormone labs today per psychiatrist recommendation. Patient also reports 50 lb weight gain since starting Abilify. Patient has not been exercising due to back pain/DDD. JORI BHAT NP [address], [place], [address], [facility] 10/31/2024 16:10:26 OBGyn Episode Ob Episode Information Episode Created Date Number of Fetuses Patient Bloodtype Patient rh Status Prepregnancy Weight lbs Domestic Partner Domestic Partner Phone Father Name Inspector Process Status 08/16/20 23 1 CLOSED Fetus Data First Name Last Name Admitted to NICU Weight (g) Sex Living Outcome Pediatric Complications Fetus ID Race Codes Race Delivery Type [id number] Vaginal Delivery Rahul Calculation Initial Rahul Date Initial Exam Date Initial Exam Provider Initial Ultrasound Date Last Menstrual Period Date Ultra Sound Weeks Gestation 0 Eighteen To Twenty Week Rahul Update Ultra Sound Date Fundal Height At Umbil Quickening Date Ultra Sound Latest Weeks Gestation Final Rahul Confirmed By Final Rahul Confirmed Date Final Rahul Date Ultra Sound Latest Days Gestation 0 0 Menstrual History Last Menstrual Date Menses Monthly On Bcp Conception Prior Menses Frequency Hcg Plus Date Menarche Onset Age Delivery Information Delivery Date Delivery Type Labor Anesthesia Weeks Gestation Incision Type Labor Labor Length Hrs Delivered By Post Complications Tubal Sterilization Discharge Date Comments 1 Discharge Information Feeding Method Contraceptive Method Maternal HG B and HCT Levels Ob Episode Information Episode Created Date Number of Fetuses Patient Bloodtype Patient rh Status Prepregnancy Weight lbs Domestic Partner Domestic Partner Phone Father Name Inspector Process Status 08/16/20 1 CLOSED Fetus Data First Name Last Name Admitted to NICU Weight (g) Sex Living Outcome Pediatric Complications Fetus ID Race Codes Race Delivery Type , Spontane ous [id number] Rahul Calculation Initial Rahul Date Initial Exam Date Initial Exam Provider Initial Ultrasound Date Last Menstrual Period Date Ultra Sound Weeks Gestation 0 Eighteen To Twenty Week Rahul Update Ultra Sound Date Fundal Height At Umbil Quickening Date Ultra Sound Latest Weeks Gestation Final Rahul Confirmed By Final Rahul Confirmed Date Final Rahul Date Ultra Sound Latest Days Gestation 0 0 Menstrual History Last Menstrual Date Menses Monthly On Bcp Conception Prior Menses Frequency Hcg Plus Date Menarche Onset Age Delivery Information Delivery Date Delivery Type Labor Anesthesia Weeks Gestation Incision Type Labor Labor Length Hrs Delivered By Post Complications Tubal Sterilization Discharge Date Comments 6 Discharge Information Feeding Method Contraceptive Method Maternal HG B and HCT Levels Ob Episode Information Episode Created Date Number of Fetuses Patient Bloodtype Patient rh Status Prepregnancy Weight lbs Domestic Partner Domestic Partner Phone Father Name Inspector Process Status 08/16/20 1 CLOSED Fetus Data First Name Last Name Admitted to NICU Weight (g) Sex Living Outcome Pediatric Complications Fetus ID Race Codes Race Delivery Type [id number] Vaginal Delivery Rahul Calculation Initial Rahul Date Initial Exam Date Initial Exam Provider Initial Ultrasound Date Last Menstrual Period Date Ultra Sound Weeks Gestation 0 Eighteen To Twenty Week Rahul Update Ultra Sound Date Fundal Height At Umbil Quickening Date Ultra Sound Latest Weeks Gestation Final Rahul Confirmed By Final Rahul Confirmed Date Final Rahul Date Ultra Sound Latest Days Gestation 0 0 Menstrual History Last Menstrual Date Menses Monthly On Bcp Conception Prior Menses Frequency Hcg Plus Date Menarche Onset Age Delivery Information Delivery Date Delivery Type Labor Anesthesia Weeks Gestation Incision Type Labor Labor Length Hrs Delivered By Post Complications Tubal Sterilization Discharge Date Comments 4 Discharge Information Feeding Method Contraceptive Method Maternal HG B and HCT Levels
[2025-09-07 18:02] VITALS: BP 148/73; PULSE 69; RESP 20; TEMP 36.7; O2SAT 98
--- OUTSIDE RECORDS SUMMARY | 2025-09-07 18:03 | XMS_ITS | Clinical Summary ---
Author Organization [facility] Address [address] [place] [address] Support Name Relationship Address Phone Omari Ortiz Spouse [address] [id number] Care Team Providers Care Clinical Coordinator Name Role Phone Tico Patel MD Primary Care Provide r Allergies Active Allergy Reactions Criticality Noted Date Comments Propoxyphene Nausea only Reaction: nausea, Propoxyphene-Acetaminophen Medications hydroCHLOROthia zide (HYDRODIURIL) 25 mg tablet take 1 tablet by oral route every day 0 0 7 Active Additional Information Patient not taking.Reported on 04/04/2023 omeprazole OTC (PriLOSEC OTC) 20 mg EC tablet 20 mg. 0 0 7 Active phenylephrine-a cetaminophen-GG (TYLENOL SINUS SEVERE) 5-325-200 mg tablet 0 0 7 Active omeprazole (PriLOSEC) 40 mg capsule Take 1 capsule (40 mg total) by mouth 2 (two) times a day 30 capsule 0 Active ondansetron (ZOFRAN) 4 mg tablet Take 1 tablet (4 mg total) by mouth every 6 (six) hours 12 tablet 0 Active Additional Information Patient not taking.Reported on 04/04/2023 losartan (COZAAR) 50 mg tablet losartan 50 mg tablet take 1 tablet by oral route every day Active amoxicillin 500 mg capsule 3 Active gabapentin (NEURONTIN) 300 mg capsule 3 Active methylPREDNISol one (MEDROL DOSEPACK) 4 mg Dosepack 3 Active norethindrone (MICRONOR) 0.35 mg tablet 03/22/202 3 Active ziprasidone (GEODON) 40 mg capsule [address] (CYMBALTA) 60 mg capsule 3 Active traZODone (DESYREL) 100 mg tablet 2 Active lisinopriL (PRINIVIL,ZESTR [place]) 20 mg tablet 2 Active Falmina, 28, 0.1-20 mg-mcg per tablet 2 Active hydroCHLOROthia zide (MICROZIDE) 12.5 mg capsule 2 Active celecoxib (CeleBREX) 100 mg capsule 2 Active busPIRone (BUSPAR) 10 mg tablet 2 Active baclofen (LIORESAL) 10 mg tablet Take 1 tablet (10 mg total) by mouth as needed 2 Active azelastine-flut icasone 137-50 mcg/spray spray,non-aeros ol 3 Active ibuprofen (ADVIL,MOTRIN) 800 mg tablet Take by mouth every 8 (eight) hours as needed 3 Active Active Problems Problem Noted Date Diagnosed Date Chronic otitis media of right ear with effusion 12/09/2021 Assessment & Plan (01/08/2022 2:51 PM CDT): Nasal saline spray (Simply saline, [employer] [place], [place], [place]) 2 second sprays or 2 squeezes into each nostril while looking down over the sink, do not need to sniff in. Flonase and Astelin (azelastine) 1 sprays each into each nostril while looking down over the sink, do not sniff in or blow nose after use for at least 30 minutes twice daily Continue Zyrtec daily Zpak with a meal daily Assessment & Plan (12/09/2021 3:04 PM CDT): Continue Prilosec twice daily Hearing test - [facility], will compare to previous hearing test at [facility] for [facility] Continue [facility] - call with results Cyst of ovary 07/02/2019 02/14/2023 Abnormal uterine bleeding 06/28/20192022 Amenorrhea 06/01/2019 02/14/2023 Sensorineural hearing loss (SNHL) of both ears 0 05/23/2017 02/14/2023 Disorder of gallbladder 09/22/2016 Overview (12/16/2016): Gallbladder disease Pelvic and perineal pain 02/03/2016 023 Immunizations Immunization Administration Dates Next Due Influenza, Quadrivalent, Spl it, Intramuscular 07/02/2021,08/23/2019,09/18/2018 Influenza, Quadrivalent, Spl it, Preservative Free, Intramuscular 07/08/2020 Influenza, Trivalent, IM (MDV) 09/11/2015,2008 Surgical History Surgery Date Site/Laterality Comments LAPAROSCOPIC CHOLECYSTECTOMY 2016 Cholecystectomy, laparoscopic Medical History Medical History Date Comments Depression Depression Hypertension Hypertension Gastroesophageal reflux disease GERD Anemia Family History Medical History Relation Name Comments Heart disease Father Hypertension Father No Known Problems Mother Relation Name Status Comments Father Mother Alive Social History Tobacco Use Types Packs/Day Years Used Date Smoking Tobacco: Never Smokeless Tobacco: Never Tobacco Cessation:Counseling Given: Not Answered Alcohol Use Standard Drinks/Week Comments No 0 (1 standard drink = 0.6 oz pur e alcohol) Comments No Sex and Gender Information Value Date Recorded Sex Assigned at Not on file Legal Sex Female 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 CLERK Gender Identity Not on file Sexual Orientation Not on file Obstetrics History Para Term AB IAB SAB Ectopic Multiple Livin g Live Births 3 2 2 2 Date Outcome GA Total Labor Labor/2nd/3rd Weight Sex Type Anes PTL Jie A1 A5 Name Clin Term Term Last Filed Vital Signs Vital Sign Reading Time Taken Comments Blood Pressure 122/74 04/04/2023 10:23 AM CDT Pulse 83 04/04/2023 10:23 AM CDT Temperature 37.1 C (98.7 F) 04/04/2023 10:23 AM CDT Respiratory Rate 18 04/04/2023 10:2 3 AM CDT Oxygen Saturation 95% 04/04/2023 10: 23 AM CDT Inhaled Oxygen Concentration - - Weight 145.8 kg (321 lb 6.4 oz) 023 10:23 AM CDT Height 177 cm (5' 9.69) 04/04/2023 10: 23 AM CDT Body Mass Index 46.53 04/04/2023 10:23 AM CDT Plan of Treatment Health Maintenance Due Date Last Done Comments Cervical Cancer Screening 1974 Colon Cancer Screening-Colonoscopy 1974 Depression Screening 1974 Hepatitis C Screening 1974 DTaP/Tdap/Td Vaccine (1 - Tdap) 1985 Hepatitis B Screening 1992 Regular Well Visit/Exam 18-64 1992 Zoster Vaccine (1 of 2) 2024 Covid-19 Vaccine (3 - season) 2025 11/29/2020, 11/01/2020 Influenza Vaccine (#1) 2025 , 07/08/2020, 08/23/2019, Additional history exists Breast Cancer Screening-Mammogram 09/22/2025 09/22/2024, 09/17/2023, 03/11/2022, Additional history exists Pneumococcal vaccine <65 Aged Out No longer eligible based on patient's age to complete this topic Procedures Procedure Name Priority Date/Time Associated Diagnosis Comments SCREENING MAMMOGRAM BILATERAL W ARIES Schedule Routine, Read Routine (OP Routine) 09/22/2024 12:35 PM COLLIERY CLERK Screening mammogram, encounter for from Last 3 Months or Most Recently Relevant to Health Maintenance Results * Screening Mammogram Bilateral W Aries (09/22/2024 12:35 PM COLLIERY CLERK) Anatomical Region Laterality Modality Breast Bilateral Mammography 09/24/2024 9:03 AM COLLIERY CLERK Impressions 09/24/2024 9:03 AM COLLIERY CLERK There is no mammographic evidence of malignancy. A 1 year screening mammogram is recommended. BI-RADS: 1 - Negative. The patient has been or will be contacted. The patient will be entered into a reminder system with a target due date of 1 year for her next mammogram. Electronically signed by: Paulina Pollard M.D. Narrative 09/24/2024 9:03 AM COLLIERY CLERK EXAMINATION: SCREENING MAMMOGRAM BILATERAL W ARIES ORDERING HEALTHCARE PROVIDER: SELF SCREENING MAMMOGRAM HISTORY: Routine screening mammography. COMPARISON: 09/17/2023, 03/11/2022, 12/01/2018 TECHNIQUE: CC and MLO views of the bilateral breasts were obtained with digital technique using breast tomosynthesis with C view. Computer aided detection was utilized. FINDINGS: DENSITY: The breasts are almost entirely fatty. BREASTS: There are no suspicious masses, suspicious calcifications, or other suspicious findings in either breast. There has been no suspicious interval change. us Self Screening Mammogram IMG MAMMO PROCEDURES Fi nal Result from Last 3 Months or Most Recently Relevant to Health Maintenance Insurance [facility] Address: [facility] [address] [place] [address] [facility]O Address: [address] [address] [place] [address] [facility]/PPO Address: [address] [address] [place] [address] [facility]/PPO Address: [address] [address] [place] [address] Care Teams Clinical Coordinator Relationship Specialty Start Date End Date Tico Patel MD [address] [place], [place] [id number] PCP - General Emergency Medicine 09/30/22
--- NOTE | 2025-09-07 19:09 | ED.BACK ---
HPI - Back Pain/Injury General Chief Complaint: Back Pain/Injury Stated Complaint: floating rib and back pain Time Seen by Provider: 09/07/25 18:55 Source: patient and RN notes reviewed Mode of arrival: ambulatory Limitations: no limitations History of Present Illness HPI Narrative: 50-year-old female presents Express Care complaining of right lower rib pain for 1 month. Patient says she has a history of her bottom rib slipping out of place. Patient says she goes the chiropractor negative popped in, last time was pot back in about right out since then a continues to pop and click causing pain. Patient says the pain is worse with deep inspiration, cough or laughing. Patient has been trying Tylenol, ibuprofen, ice and heat without relief. Patient has any fevers advice, chills, chest pains, nausea vomiting, or any other symptoms. Related Data Home Medications ?Medication ?Instructions ?Recorded ?Confirmed ?Last Taken ?Type trazodone 100 mg tablet 200 mg PO BID 10/19/19 06/17/25 Unknown History duloxetine 60 mg capsule,delayed 60 mg PO BID 11/01/22 06/17/25 Unknown History release (Cymbalta) fluticasone propionate 50 2 spray intranasal DAILY 09/21/23 06/17/25 Unknown History mcg/actuation nasal spray,suspension norethindrone (contraceptive) 0.35 0.35 mg PO DAILY 09/21/23 06/17/25 Unknown History mg tablet aripiprazole 5 mg tablet mg 09/07/25 Unknown History baclofen 10 mg tablet mg 09/07/25 Unknown History gabapentin 300 mg capsule mg 09/07/25 Unknown History Allergies Allergy/AdvReac Type Severity Reaction Status Date / Time No Known Allergies Allergy Verified 09/07/25 18:16 Review of Systems Review of Systems: CONSTITUTIONAL: Denies fever, chills, or sweats. EYES: Denies visual changes, redness, or discharge. ENT: Denies rhinorrhea, congestion, sore throat, or otalgia. CARDIOVASCULAR: Denies chest pain, palpitations, or edema. RESPIRATORY: Denies cough or dyspnea. GASTROINTESTINAL: Denies abdominal pain, nausea, vomiting, or diarrhea. GENITOURINARY: Denies dysuria or hematuria. SKIN: Denies rash or itching. MUSCULOSKELETAL: Denies back pain, joint pain, or myalgia. Positive for rib pain. NEUROLOGIC: Denies headache, numbness, or weakness. PSYCHIATRIC: Denies anxiety or depression. All other systems reviewed are negative, except as documented in HPI. [facility] Past Medical History Medical History Fatigue Palpitation Nausea and vomiting Encounter for examination following surgery Encounter for other specified surgical aftercare Umbilical hernia without mention of obstruction or gangrene Encounter for contraceptive surveillance Sinusitis chronic, frontal Indigestion Bloating Earache Dizziness History of miscarriage Stomach problems Chicken pox Missed x1 Vaginal delivery x2 Depression Hypertension Chronic GERD Arthritis Anxiety Anemia Surgical History Surgical History H/O umbilical hernia repair 02/23/23 Laparoscopic 1 cm umbilical hernia repair with mesh, Da Aleksander assisted. History of foot surgery History of cholecystectomy 2018 Family History Family History Father Hypertension Anxiety Depression Sibling Hypertension Son Anxiety Depression Mother Atrial fibrillation Social History Social History Social History: Patient drinks caffeine daily. 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 Gender identity (if verbalized by the patient): Female Sexual Orientation (if Verbalized by the Patient): Straight or Heterosexual Spiritual care concerns: No Comments At the time of my signature, I reviewed and agree with the nursing past medical, surgical, social, and family history. There is no relevant family history pertinent to the patient complaint. Exam Narrative: GENERAL: This is a well-nourished, well-developed adult, in no apparent distress. They are non ill-appearing, nontoxic appearing. HEAD: normocephalic, atraumatic. EYES: Sclera clear/white. Conjunctiva normal. Vision is grossly intact. Extraocular movements intact EARS: External ears normal, Hearing grossly intact. NOSE: External nose normal THROAT: Mucous membranes moist, NECK: Neck supple, non-tender without lymphadenopathy, masses or thyromegaly. CARDIOVASCULAR: Regular rate and rhythm without murmurs, gallops, or rubs. CHEST WALL: No paradoxical movements, no flail chest segment. Right lower rib tender to palpate throughout. Your rib 11. No Obvious deformity, bruising, or injury, no crepitus or step-offs. RESPIRATORY: Clear to auscultation. Breath sounds equal bilaterally. No wheezes, rales, or rhonchi. SKIN: warm, Dry, intact with no suspicious lesions or rash, good texture and turgor. NEURO: awake, alert, and oriented to person, place and time. There were no obvious focal neurologic abnormalities. EXTREMITIES: No joint tenderness, effusion, or edema noted. BACK: Nontender without deformity. Course Course Level of Care: Express Care Visit Vital Signs Vital signs: Vital Signs Temperature 98.0 F 09/07/25 18:02 Pulse Rate 69 09/07/25 18:02 Respiratory Rate 20 09/07/25 18:02 Blood Pressure 148/73 H 09/07/25 18:02 Pulse Oximetry 98 09/07/25 18:02 Oxygen Delivery Room Air 09/07/25 18:02 Temperature 98.0 F 09/07/25 18:02 Pulse Rate 69 09/07/25 18:02 Respiratory Rate 20 09/07/25 18:02 Blood Pressure 148/73 H 09/07/25 18:02 Pulse Oximetry 98 09/07/25 18:02 Oxygen Delivery Room Air 09/07/25 18:02 [facility] Narrative Medical decision making narrative: Rib/chest x-ray negative for any acute cardiopulmonary findings, no rib fractures or other findings. Patient could have slipped rib syndrome. Patient says she had a hour time sleeping at night, will give her course of muscle relaxers for pain. Discussed supportive care. Will give her incentive spirometer to help prevent pneumonia when she has the pain. Discussed physical exam findings. Advised supportive measures and signs/symptoms to go to the ER. Pt is appropriate for outpt treatment and f/u. Differential Diagnosis Differential Diagnosis: Rib fracture, rib contusion, rib dislocation, slipping rib syndrome, pneumonia, muscle skeletal injury Imaging Data Radiologist's impression: ITS Impressions Ribs w/Chest X-Ray 09/07/25 18:46 IMPRESSION: 1. No acute cardiopulmonary findings. 2. No acute findings of right-sided ribs. Critical Care Time Critical Care Time Critical Care Time: No Discharge Plan Discharge Clinical Impression: Rib pain on right side Patient Disposition: Home Condition: Stable Instructions: Rib Contusion (ED) Additional Instructions: The x-ray of your right ribs/chest x-ray is negative for any acute cardiopulmonary findings no fractures or any other findings. Is possibly you may have slipped rib syndrome, You may take ibuprofen 600 mg to 800 mg every 6-8 hours. Do not exceed more than 800 mg of ibuprofen per dose. Do not exceed more than 3200 mg ibuprofen in a day. You may take up to 1000 mg Tylenol every 6-8 hours. Do not exceed 1000 mg per dose, do exceed more than 4000 mg of Tylenol in a day. May alternate with heat in ice to the affected area. Take the muscle relaxer as directed, do not drive or operate machinery as they may make you drowsy. Use incentive spirometer every 2 hours while awake on the hour, taking 10 deep breaths to help prevent pneumonia. Follow-up with your PCP in 3-5 days. Go to the ER if you develops worsening symptoms, fevers, chest pains, cough, weakness, chills, or any serious concerns. Patient Language: Tunisian Prescriptions: New methocarbamol 750 mg tablet 750 mg PO TID PRN (Reason: muscle spasms) Qty: 12 0RF No Action norethindrone (contraceptive) 0.35 mg tablet 0.35 mg PO DAILY fluticasone propionate 50 mcg/actuation spray,suspension 2 spray INTRANASAL DAILY trazodone 100 mg Tablet 200 mg PO BID duloxetine [Cymbalta] 60 mg capsule,delayed release(DR/EC) 60 mg PO BID baclofen 10 mg tablet gabapentin 300 mg capsule aripiprazole 5 mg tablet losartan 50 mg tablet See Rx Instructions .ROUTE .COMPLEX Qty: 90 2RF Dose Instruction: TAKE ONE TABLET BY MOUTH EVERY DAY Rx Instructions: TAKE ONE TABLET BY MOUTH EVERY DAY hydrochlorothiazide 12.5 mg capsule See Rx Instructions .ROUTE .COMPLEX Qty: 90 2RF Dose Instruction: TAKE 1 CAPSULE BY MOUTH EVERY DAY Rx Instructions: TAKE 1 CAPSULE BY MOUTH EVERY DAY omeprazole 40 mg capsule,delayed release(DR/EC) 40 mg PO BID Qty: 180 2RF Follow-up/Referrals: Tico Patel MD [Primary Care Provider, Internal Medicine] Time of Disposition: 19:08
== END 2025-09-07 19:13 | disposition home or self-care (01) ==
PROVIDERS: PCP Emergency Medicine
DX: R07.89 Other chest pain (principal); I10 Essential (primary) hypertension; K21.9 Gastro-esophageal reflux disease without esophagitis; M19.90 Unspecified osteoarthritis, unspecified site
CPT/HCPCS: 71046; 71100; 99213; G0463